=== PATIENT | male | born 1960 ===

== ENCOUNTER 2020-12-13 21:57 | Inpatient (IN) ==
[2020-12-14] MEDS ORDERED: Naloxone 0.4 MG/ML INJ IVP PRN (00:26)
[2020-12-14 01:02] LABS: Basophils % 0.2 %; Eosinophils # 0.3 K/mcL (0.0-0.6); Eosinophils % 2.6 %; Hematocrit 35.5 % (37.5-50.1); Hemoglobin 11.1 g/dL (12.9-16.9); Immature Granulocytes % 1.9 % (0-4); Lymphocytes # 1.2 K/mcL (0.6-4.6); Lymphocytes % 9.2 %; Mean Corpuscular HGB Conc 31.3 g/dL (31.6-35.5); Mean Corpuscular Volume 99.2 fL (83.0-100.0); Monocytes # 0.9 K/mcL (0.0-1.3); Monocytes % 7.2 %; Neutrophils # 10.1 K/mcL (1.6-8.9); Nucleated Red Blood Cells 0.2 /100 WBC (0); Platelet Count 145 K/mcL (140-400); Red Blood Count 3.58 M/mcL (4.19-5.50); Red Cell Distribution Width 14.8 % (11.5-14.5); Segmented Neutrophils % 78.9 %; White Blood Count 12.9 K/mcL (4.3-11.1)
[2020-12-14 01:12] LABS: INR 1.8; Prothrombin Time 20.7 Seconds (9.4-12.1)
[2020-12-14 01:27] LABS: Alanine Aminotransferase 53 Units/L (7-52); Albumin 3.2 g/dL (3.5-5.7); Albumin/Globulin Ratio 1.1 (1.1-2.2); Alkaline Phosphatase 59 Units/L (34-104); Aspartate Amino Transferase 25 Units/L (13-39); BUN/Creatinine Ratio 16 (6-26); Bilirubin,Total 0.6 mg/dL (0.3-1.0); Blood Urea Nitrogen 15 mg/dL (8-23); C-Reactive Protein > 300 mg/L (Less than 10); Calcium 8.8 mg/dL (8.6-10.3); Carbon Dioxide 32 mEq/L (23-29); Chloride 88 mEq/L (98-107); Glucose 145 mg/dL (70-105); Magnesium 2.2 mg/dL (1.6-2.6); Osmolality,Calculated 279 (280-300); Potassium 3.3 mEq/L (3.5-5.1); Sodium 133 mEq/L (136-145); Total Protein 6.2 g/dL (6.4-8.9); eGFR For African Americans > 60 (> 60); eGFR For Non-African Americans > 60 (> 60)
[2020-12-14] MEDS: Ondansetron 4 MG/2 ML VIAL IVP PRN (02:31)
[2020-12-14] MEDS ORDERED: Ipratropium/Albuterol Neb 3 ML IH PRN (03:13)
[2020-12-14 03:15] LABS: Bilirubin,Urine Negative (Negative); Blood,Urine Small (Negative); Budding Yeast,Urine Many per hpf (None Seen); Clarity,Urine Turbid (Clear); Color,Urine Yellow (Yellow); Glucose,Urine (UA) Normal (Normal); Ketones,Urine 40 mg/dL (Negative); Leukocyte Esterase,Urine Negative (Negative); Nitrite,Urine Negative (Negative); Protein,Urine 70 mg/dL (Neg-Trace); RBC,Urine 30-50 per hpf (0-3); Specific Gravity,Urine > 1.030 (1.010-1.025); Squamous Epithelial Cell,Urine Few per hpf (None-Few); Urobilinogen,Urine Normal (Normal); WBC,Urine 15-30 per hpf (0-3)
[2020-12-14] MEDS: Acetaminophen 325 MG TABLET PO PRN (03:41)
[2020-12-14 03:52] LABS: Adenovirus Not Detected (Not Detect); Coronavirus 229E Not Detected (Not Detect); Coronavirus HKU1 Not Detected (Not Detect); Coronavirus NL63 Not Detected (Not Detect); Coronavirus OC43 Not Detected (Not Detect)
[2020-12-14 03:53] LABS: Bordetella Pertussis Not Detected (Not Detect); Chlamydophila pneumoniae Not Detected (Not Detect); Human Metapneumovirus Not Detected (Not Detect); Human Rhinovirus/Enterovirus Not Detected (Not Detect); Influenza A Subtype 2009 H1 Not Detected (Not Detect); Influenza B Not Detected (Not Detect); Mycoplasma pneumoniae Not Detected (Not Detect); Parainfluenza Virus 1 Not Detected (Not Detect); Parainfluenza Virus 2 Not Detected (Not Detect); Parainfluenza Virus 3 Not Detected (Not Detect); Parainfluenza Virus 4 Not Detected (Not Detect); Respiratory Syncytial Virus Not Detected (Not Detect); SARS-CoV-2 Not Detected (Not Detect)
[2020-12-14] MEDS ORDERED: *HR* Metoprolol 5 MG/5 ML VIAL IVP ONE (06:52)
[2020-12-14] MEDS: Trolamine Salicylate/Aloe Vera 85 APPL/85 GM TUBE TP PRN ×3 (07:01→23:18)
[2020-12-14] MEDS: Budesonide/Formoterol 160/4.5 1 PUFF INH IH SCH ×2 (07:29→20:08)
[2020-12-14] MEDS: Apixaban 5 MG TABLET PO SCH ×2 (08:42→21:59)
[2020-12-14] MEDS: Cefepime HCl 2,000 MG in 0.9 % Sodium Chloride Mini Bag 100 ML IVPB SCH ×3 (08:43→23:18)
[2020-12-14] MEDS: Menthol 1 EACH LOZENGE PO PRN (09:08)
[2020-12-14] MEDS: Vancomycin 1,500 MG/265 ML IV.SOLN IVPB SCH ×2 (10:24→21:59)
[2020-12-14] MEDS: MethylPREDNISolone 40 MG/ML VIAL IVP SCH (16:06)
[2020-12-15 00:09] LABS: ABG Base Excess 4 mEq/L (-2 to 3); ABG HCO3 32 mEq/L (21-27); ABG Oxygen Saturation 87 % (95-98); ABG PCO2 60 mmHg (35-45); ABG PH 7.33 pH Units (7.32-7.45); ABG PO2 58 mmHg (85-104); ABG TCO2 33 mEq/L (20-26)
[2020-12-15 02:03] LABS: Basophils % 0.3 %; Eosinophils % 0.3 %; Hematocrit 33.1 % (37.5-50.1); Hemoglobin 10.7 g/dL (12.9-16.9); Immature Granulocytes % 2.3 % (0-4); Lymphocytes # 0.5 K/mcL (0.6-4.6); Lymphocytes % 3.8 %; Mean Corpuscular HGB Conc 32.3 g/dL (31.6-35.5); Mean Corpuscular Hemoglobin 31.6 pg (28.0-33.3); Mean Corpuscular Volume 97.6 fL (83.0-100.0); Mean Platelet Volume 10.6 fL (9.4-12.4); Monocytes # 0.5 K/mcL (0.0-1.3); Neutrophils # 10.5 K/mcL (1.6-8.9); Platelet Count 148 K/mcL (140-400); Red Blood Count 3.39 M/mcL (4.19-5.50); Red Cell Distribution Width 14.3 % (11.5-14.5); Segmented Neutrophils % 89.3 %; White Blood Count 11.7 K/mcL (4.3-11.1)
[2020-12-15 02:20] LABS: BUN/Creatinine Ratio 17 (6-26); Blood Urea Nitrogen 18 mg/dL (8-23); Calcium 8.5 mg/dL (8.6-10.3); Carbon Dioxide 28 mEq/L (23-29); Chloride 93 mEq/L (98-107); Glucose 192 mg/dL (70-105); Osmolality,Calculated 283 (280-300); Sodium 133 mEq/L (136-145); eGFR For African Americans > 60 (> 60); eGFR For Non-African Americans > 60 (> 60)
[2020-12-15] MEDS: MethylPREDNISolone 40 MG/ML VIAL IVP SCH ×2 (06:01→16:57)
[2020-12-15] MEDS: Trolamine Salicylate/Aloe Vera 85 APPL/85 GM TUBE TP PRN ×2 (07:25→16:57)
[2020-12-15] MEDS: Apixaban 5 MG TABLET PO SCH ×2 (07:25→21:53)
[2020-12-15] MEDS: Cefepime HCl 2,000 MG in 0.9 % Sodium Chloride Mini Bag 100 ML IVPB SCH ×2 (07:25→16:56)
[2020-12-15] MEDS: Menthol 1 EACH LOZENGE PO PRN ×2 (07:31→22:01)
[2020-12-15] MEDS ORDERED: Furosemide 40 MG/4 ML VIAL IVP ONE (07:43)
[2020-12-15] MEDS: Fluticasone Propionate Nasal 50 MCG/SPRAY BOTTLE NS SCH (09:01)
[2020-12-15] MEDS: Ipratropium/Albuterol Neb 3 ML IH SCH ×3 (09:59→22:01)
[2020-12-15] MEDS: Budesonide/Formoterol 160/4.5 1 PUFF INH IH SCH ×2 (09:59→22:01)
[2020-12-15] MEDS: Doxycycline 100 MG CAPSULE PO SCH (16:57)
[2020-12-15] MEDS: Acetaminophen 325 MG TABLET PO PRN (21:52)
[2020-12-16] MEDS: Trolamine Salicylate/Aloe Vera 85 APPL/85 GM TUBE TP PRN ×2 (00:01→08:55)
[2020-12-16] MEDS: Cefepime HCl 2,000 MG in 0.9 % Sodium Chloride Mini Bag 100 ML IVPB SCH ×4 (00:01→23:38)
[2020-12-16] MEDS: Menthol 1 EACH LOZENGE PO PRN ×2 (00:44→08:59)
[2020-12-16 02:16] LABS: Basophils % 0.2 %; Hematocrit 30.5 % (37.5-50.1); Hemoglobin 9.8 g/dL (12.9-16.9); Immature Granulocytes % 4.2 % (0-4); Lymphocytes # 0.6 K/mcL (0.6-4.6); Lymphocytes % 4.4 %; Mean Corpuscular HGB Conc 32.1 g/dL (31.6-35.5); Mean Corpuscular Hemoglobin 31.3 pg (28.0-33.3); Mean Corpuscular Volume 97.4 fL (83.0-100.0); Mean Platelet Volume 10.3 fL (9.4-12.4); Monocytes # 0.8 K/mcL (0.0-1.3); Monocytes % 6.6 %; Neutrophils # 10.7 K/mcL (1.6-8.9); Nucleated Red Blood Cells 0.2 /100 WBC (0); Platelet Count 177 K/mcL (140-400); Red Blood Count 3.13 M/mcL (4.19-5.50); Red Cell Distribution Width 14.3 % (11.5-14.5); Segmented Neutrophils % 84.6 %; White Blood Count 12.7 K/mcL (4.3-11.1)
[2020-12-16 02:37] LABS: BUN/Creatinine Ratio 22 (6-26); Blood Urea Nitrogen 27 mg/dL (8-23); Carbon Dioxide 29 mEq/L (23-29); Chloride 93 mEq/L (98-107); Glucose 280 mg/dL (70-105); Osmolality,Calculated 289 (280-300); Potassium 4.5 mEq/L (3.5-5.1); Sodium 132 mEq/L (136-145); eGFR For African Americans > 60 (> 60); eGFR For Non-African Americans 59 (> 60)
[2020-12-16] MEDS: Ipratropium/Albuterol Neb 3 ML IH SCH ×4 (04:00→21:29)
[2020-12-16] MEDS: Doxycycline 100 MG CAPSULE PO SCH ×2 (06:33→16:15)
[2020-12-16] MEDS: MethylPREDNISolone 40 MG/ML VIAL IVP SCH ×2 (06:33→16:14)
[2020-12-16] MEDS: Fluticasone Propionate Nasal 50 MCG/SPRAY BOTTLE NS SCH (08:53)
[2020-12-16] MEDS: Apixaban 5 MG TABLET PO SCH ×2 (08:53→20:28)
[2020-12-16] MEDS: Budesonide/Formoterol 160/4.5 1 PUFF INH IH SCH ×2 (09:48→21:29)
[2020-12-16] MEDS: Acetaminophen 325 MG TABLET PO PRN (10:13)
[2020-12-17] MEDS: Acetaminophen 325 MG TABLET PO PRN (02:45)
[2020-12-17] MEDS: Ipratropium/Albuterol Neb 3 ML IH SCH ×4 (03:53→22:32)
[2020-12-17 04:09] LABS: Basophils % 0.3 %; Hematocrit 30.1 % (37.5-50.1); Hemoglobin 9.9 g/dL (12.9-16.9); Immature Granulocytes % 6.6 % (0-4); Lymphocytes # 0.6 K/mcL (0.6-4.6); Lymphocytes % 5.4 %; Mean Corpuscular HGB Conc 32.9 g/dL (31.6-35.5); Mean Corpuscular Volume 97.4 fL (83.0-100.0); Monocytes # 0.8 K/mcL (0.0-1.3); Neutrophils # 9.4 K/mcL (1.6-8.9); Nucleated Red Blood Cells 0.2 /100 WBC (0); Platelet Count 219 K/mcL (140-400); Red Blood Count 3.09 M/mcL (4.19-5.50); Red Cell Distribution Width 14.5 % (11.5-14.5); Segmented Neutrophils % 80.7 %; White Blood Count 11.7 K/mcL (4.3-11.1)
[2020-12-17 04:16] LABS: BUN/Creatinine Ratio 29 (6-26); Blood Urea Nitrogen 36 mg/dL (8-23); Calcium 9.2 mg/dL (8.6-10.3); Carbon Dioxide 30 mEq/L (23-29); Chloride 95 mEq/L (98-107); Glucose 321 mg/dL (70-105); Osmolality,Calculated 301 (280-300); Potassium 4.4 mEq/L (3.5-5.1); Sodium 135 mEq/L (136-145); eGFR For African Americans > 60 (> 60); eGFR For Non-African Americans 59 (> 60)
[2020-12-17 04:42] LABS: Platelet Estimate Normal (Normal); Smudge Cells Present (Not Present); Toxic Granulation Present (Not Present)
[2020-12-17] MEDS: MethylPREDNISolone 40 MG/ML VIAL IVP SCH ×2 (05:00→16:16)
[2020-12-17] MEDS: Doxycycline 100 MG CAPSULE PO SCH ×2 (05:01→16:14)
[2020-12-17] MEDS: Apixaban 5 MG TABLET PO SCH ×2 (08:16→21:00)
[2020-12-17] MEDS: Trolamine Salicylate/Aloe Vera 85 APPL/85 GM TUBE TP PRN (08:16)
[2020-12-17] MEDS: Cefepime HCl 2,000 MG in 0.9 % Sodium Chloride Mini Bag 100 ML IVPB SCH ×3 (08:17→23:39)
[2020-12-17] MEDS: Fluticasone Propionate Nasal 50 MCG/SPRAY BOTTLE NS SCH (08:18)
[2020-12-17] MEDS: Menthol 1 EACH LOZENGE PO PRN ×3 (08:20→23:50)
[2020-12-17] MEDS ORDERED: Isovue-370 500 ML BOTTLE IVP ONE (09:12)
[2020-12-17] MEDS: Budesonide/Formoterol 160/4.5 1 PUFF INH IH SCH ×2 (11:10→22:32)
[2020-12-17] MEDS ORDERED: D5% in Water 1,000 ML IVC PRN (13:42)
[2020-12-17] MEDS ORDERED: *HR* Dextrose 50 % in Water (Vial) 50 ML VIAL IVP PRN (13:42)
[2020-12-17] MEDS ORDERED: Dextrose Gel 15 GM/37.5 ML TUBE PO PRN ×2 (13:42)
[2020-12-17] MEDS: Insulin LISPRO 300 UNITS/3 ML VIAL SUBQ SCH (16:14)
[2020-12-17] MEDS: MetroNIDAZOLE 500 MG/100 ML 500 MG/100 ML BAG IVPB SCH ×2 (16:15→23:40)
[2020-12-17] MEDS: Insulin DETEMIR 100 UNIT/ML X5UNITS SUBQ SCH (21:01)
[2020-12-18] MEDS: Acetaminophen 325 MG TABLET PO PRN ×2 (01:36→12:10)
[2020-12-18] MEDS: Ipratropium/Albuterol Neb 3 ML IH SCH ×4 (03:55→22:43)
[2020-12-18 04:22] LABS: Basophils % 0.2 %; Eosinophils % 0.1 %; Hemoglobin 9.8 g/dL (12.9-16.9); Immature Granulocytes % 6.7 % (0-4); Lymphocytes # 0.8 K/mcL (0.6-4.6); Lymphocytes % 7.2 %; Mean Corpuscular HGB Conc 32.7 g/dL (31.6-35.5); Mean Corpuscular Hemoglobin 32.1 pg (28.0-33.3); Mean Corpuscular Volume 98.4 fL (83.0-100.0); Mean Platelet Volume 9.8 fL (9.4-12.4); Monocytes # 0.6 K/mcL (0.0-1.3); Monocytes % 5.5 %; Neutrophils # 8.6 K/mcL (1.6-8.9); Nucleated Red Blood Cells 0.3 /100 WBC (0); Platelet Count 215 K/mcL (140-400); Red Blood Count 3.05 M/mcL (4.19-5.50); Red Cell Distribution Width 14.6 % (11.5-14.5); Segmented Neutrophils % 80.3 %; White Blood Count 10.7 K/mcL (4.3-11.1)
[2020-12-18 04:42] LABS: BUN/Creatinine Ratio 33 (6-26); Blood Urea Nitrogen 40 mg/dL (8-23); Calcium 9.3 mg/dL (8.6-10.3); Carbon Dioxide 29 mEq/L (23-29); Chloride 98 mEq/L (98-107); Glucose 320 mg/dL (70-105); Osmolality,Calculated 304 (280-300); Potassium 4.5 mEq/L (3.5-5.1); Sodium 136 mEq/L (136-145); eGFR For African Americans > 60 (> 60); eGFR For Non-African Americans > 60 (> 60)
[2020-12-18 04:53] LABS: Platelet Estimate Normal (Normal)
[2020-12-18 05:08] LABS: Estimated Average Glucose 209 mg/dl; Hemoglobin A1C 8.9 %
[2020-12-18] MEDS: MethylPREDNISolone 40 MG/ML VIAL IVP SCH ×2 (06:31→17:59)
[2020-12-18] MEDS: Doxycycline 100 MG CAPSULE PO SCH ×2 (06:31→18:08)
[2020-12-18] MEDS: Apixaban 5 MG TABLET PO SCH ×2 (08:58→20:03)
[2020-12-18] MEDS: Fluticasone Propionate Nasal 50 MCG/SPRAY BOTTLE NS SCH (08:58)
[2020-12-18] MEDS: Insulin LISPRO 300 UNITS/3 ML VIAL SUBQ SCH ×3 (08:58→17:59)
[2020-12-18] MEDS: Cefepime HCl 2,000 MG in 0.9 % Sodium Chloride Mini Bag 100 ML IVPB SCH ×3 (08:59→23:51)
[2020-12-18] MEDS: MetroNIDAZOLE 500 MG/100 ML 500 MG/100 ML BAG IVPB SCH ×3 (08:59→23:51)
[2020-12-18] MEDS: Budesonide/Formoterol 160/4.5 1 PUFF INH IH SCH ×2 (09:59→22:43)
[2020-12-18] MEDS: Insulin DETEMIR 100 UNIT/ML X5UNITS SUBQ SCH (20:04)
[2020-12-18] MEDS: Trolamine Salicylate/Aloe Vera 85 APPL/85 GM TUBE TP PRN (20:27)
[2020-12-19] MEDS: Ipratropium/Albuterol Neb 3 ML IH SCH ×4 (03:57→23:09)
[2020-12-19] MEDS: Doxycycline 100 MG CAPSULE PO SCH ×2 (04:35→15:28)
[2020-12-19] MEDS: MethylPREDNISolone 40 MG/ML VIAL IVP SCH (04:35)
[2020-12-19] MEDS ORDERED: Furosemide 20 MG/2 ML VIAL IVP ONE (04:40)
[2020-12-19] MEDS: MetroNIDAZOLE 500 MG/100 ML 500 MG/100 ML BAG IVPB SCH ×2 (09:41→15:31)
[2020-12-19] MEDS: Cefepime HCl 2,000 MG in 0.9 % Sodium Chloride Mini Bag 100 ML IVPB SCH ×3 (09:41→23:30)
[2020-12-19] MEDS: Apixaban 5 MG TABLET PO SCH ×2 (09:41→20:04)
[2020-12-19] MEDS: Fluticasone Propionate Nasal 50 MCG/SPRAY BOTTLE NS SCH (09:43)
[2020-12-19] MEDS: Insulin LISPRO 300 UNITS/3 ML VIAL SUBQ SCH ×3 (09:43→17:07)
[2020-12-19] MEDS: Budesonide/Formoterol 160/4.5 1 PUFF INH IH SCH ×2 (11:06→23:09)
[2020-12-19] MEDS ORDERED: Furosemide 40 MG/4 ML VIAL IVP ONE (17:00)
[2020-12-19] MEDS: Insulin DETEMIR 100 UNIT/ML X5UNITS SUBQ SCH (20:05)
[2020-12-20] MEDS: MetroNIDAZOLE 500 MG/100 ML 500 MG/100 ML BAG IVPB SCH ×4 (00:24→23:53)
[2020-12-20] MEDS: Ipratropium/Albuterol Neb 3 ML IH SCH ×4 (04:03→21:49)
[2020-12-20 04:40] LABS: Basophils # 0.1 K/mcL (0.0-0.2); Basophils % 0.5 %; Eosinophils # 0.3 K/mcL (0.0-0.6); Eosinophils % 2.1 %; Hematocrit 33.7 % (37.5-50.1); Hemoglobin 10.5 g/dL (12.9-16.9); Immature Granulocytes % 4.7 % (0-4); Lymphocytes # 1.7 K/mcL (0.6-4.6); Lymphocytes % 13.5 %; Mean Corpuscular HGB Conc 31.2 g/dL (31.6-35.5); Mean Corpuscular Hemoglobin 31.1 pg (28.0-33.3); Mean Corpuscular Volume 99.7 fL (83.0-100.0); Mean Platelet Volume 9.6 fL (9.4-12.4); Monocytes # 0.5 K/mcL (0.0-1.3); Monocytes % 3.7 %; Neutrophils # 9.7 K/mcL (1.6-8.9); Nucleated Red Blood Cells 0.5 /100 WBC (0); Platelet Count 214 K/mcL (140-400); Red Blood Count 3.38 M/mcL (4.19-5.50); Red Cell Distribution Width 15.2 % (11.5-14.5); Segmented Neutrophils % 75.5 %; White Blood Count 12.8 K/mcL (4.3-11.1)
[2020-12-20 04:59] LABS: BUN/Creatinine Ratio 33 (6-26); Blood Urea Nitrogen 40 mg/dL (8-23); Calcium 9.4 mg/dL (8.6-10.3); Carbon Dioxide 31 mEq/L (23-29); Chloride 100 mEq/L (98-107); Glucose 149 mg/dL (70-105); Osmolality,Calculated 301 (280-300); Potassium 3.9 mEq/L (3.5-5.1); Sodium 139 mEq/L (136-145); eGFR For African Americans > 60 (> 60); eGFR For Non-African Americans > 60 (> 60)
[2020-12-20] MEDS: Doxycycline 100 MG CAPSULE PO SCH (05:51)
[2020-12-20] MEDS: Apixaban 5 MG TABLET PO SCH ×2 (07:45→21:10)
[2020-12-20] MEDS: Cefepime HCl 2,000 MG in 0.9 % Sodium Chloride Mini Bag 100 ML IVPB SCH ×3 (07:45→23:53)
[2020-12-20] MEDS: predniSONE 20 MG TABLET PO SCH (07:45)
[2020-12-20] MEDS: Fluticasone Propionate Nasal 50 MCG/SPRAY BOTTLE NS SCH (07:46)
[2020-12-20] MEDS: Insulin LISPRO 300 UNITS/3 ML VIAL SUBQ SCH ×3 (07:51→16:23)
[2020-12-20] MEDS ORDERED: Furosemide 40 MG/4 ML VIAL IVP SCH (09:00)
[2020-12-20] MEDS: Budesonide/Formoterol 160/4.5 1 PUFF INH IH SCH ×2 (09:03→21:49)
[2020-12-20] MEDS: Ondansetron 4 MG/2 ML VIAL IVP PRN (12:21)
[2020-12-20] MEDS: Acetaminophen 325 MG TABLET PO PRN (21:10)
[2020-12-20] MEDS: Insulin DETEMIR 100 UNIT/ML X5UNITS SUBQ SCH (21:11)
[2020-12-21] MEDS: Ipratropium/Albuterol Neb 3 ML IH SCH ×4 (03:49→22:08)
[2020-12-21 06:24] LABS: Basophils % 0.3 %; Eosinophils # 0.2 K/mcL (0.0-0.6); Eosinophils % 1.9 %; Lymphocytes # 1.4 K/mcL (0.6-4.6); Mean Corpuscular HGB Conc 32.4 g/dL (31.6-35.5); Mean Corpuscular Hemoglobin 32.1 pg (28.0-33.3); Mean Corpuscular Volume 99.1 fL (83.0-100.0); Mean Platelet Volume 9.9 fL (9.4-12.4); Monocytes # 0.5 K/mcL (0.0-1.3); Monocytes % 4.1 %; Neutrophils # 9.8 K/mcL (1.6-8.9); Nucleated Red Blood Cells 0.2 /100 WBC (0); Platelet Count 217 K/mcL (140-400); Red Blood Count 3.43 M/mcL (4.19-5.50); Red Cell Distribution Width 14.9 % (11.5-14.5); Segmented Neutrophils % 79.7 %; White Blood Count 12.4 K/mcL (4.3-11.1)
[2020-12-21 06:44] LABS: BUN/Creatinine Ratio 33 (6-26); Blood Urea Nitrogen 44 mg/dL (8-23); Calcium 9.3 mg/dL (8.6-10.3); Carbon Dioxide 31 mEq/L (23-29); Chloride 100 mEq/L (98-107); Glucose 136 mg/dL (70-105); Osmolality,Calculated 299 (280-300); Potassium 3.6 mEq/L (3.5-5.1); Sodium 138 mEq/L (136-145); eGFR For African Americans > 60 (> 60); eGFR For Non-African Americans 54 (> 60)
[2020-12-21] MEDS: Cefepime HCl 2,000 MG in 0.9 % Sodium Chloride Mini Bag 100 ML IVPB SCH ×2 (08:24→16:07)
[2020-12-21] MEDS: predniSONE 20 MG TABLET PO SCH (08:24)
[2020-12-21] MEDS: Apixaban 5 MG TABLET PO SCH ×2 (08:24→20:43)
[2020-12-21] MEDS: Furosemide 40 MG TABLET PO SCH (08:24)
[2020-12-21] MEDS: Insulin LISPRO 300 UNITS/3 ML VIAL SUBQ SCH ×3 (08:26→16:44)
[2020-12-21] MEDS: MetroNIDAZOLE 500 MG/100 ML 500 MG/100 ML BAG IVPB SCH (08:26)
[2020-12-21] MEDS: Fluticasone Propionate Nasal 50 MCG/SPRAY BOTTLE NS SCH (08:27)
[2020-12-21] MEDS: Trolamine Salicylate/Aloe Vera 85 APPL/85 GM TUBE TP PRN (08:27)
[2020-12-21] MEDS: Budesonide/Formoterol 160/4.5 1 PUFF INH IH SCH ×2 (09:26→22:08)
[2020-12-21] MEDS: Insulin DETEMIR 100 UNIT/ML X5UNITS SUBQ SCH (20:43)
[2020-12-22] MEDS: Cefepime HCl 2,000 MG in 0.9 % Sodium Chloride Mini Bag 100 ML IVPB SCH ×3 (00:04→17:33)
[2020-12-22] MEDS: Ipratropium/Albuterol Neb 3 ML IH SCH ×4 (03:47→22:09)
[2020-12-22 04:28] LABS: Basophils % 0.1 %; Eosinophils # 0.1 K/mcL (0.0-0.6); Eosinophils % 0.8 %; Hematocrit 31.2 % (37.5-50.1); Immature Granulocytes % 2.1 % (0-4); Lymphocytes % 9.7 %; Mean Corpuscular HGB Conc 32.1 g/dL (31.6-35.5); Mean Corpuscular Hemoglobin 31.5 pg (28.0-33.3); Mean Corpuscular Volume 98.4 fL (83.0-100.0); Mean Platelet Volume 9.7 fL (9.4-12.4); Monocytes # 0.5 K/mcL (0.0-1.3); Monocytes % 4.3 %; Neutrophils # 8.9 K/mcL (1.6-8.9); Platelet Count 197 K/mcL (140-400); Red Blood Count 3.17 M/mcL (4.19-5.50); Red Cell Distribution Width 14.7 % (11.5-14.5); White Blood Count 10.7 K/mcL (4.3-11.1)
[2020-12-22 04:46] LABS: BUN/Creatinine Ratio 29 (6-26); Blood Urea Nitrogen 36 mg/dL (8-23); Calcium 8.3 mg/dL (8.6-10.3); Carbon Dioxide 28 mEq/L (23-29); Chloride 99 mEq/L (98-107); Glucose 126 mg/dL (70-105); Osmolality,Calculated 302 (280-300); Potassium 3.4 mEq/L (3.5-5.1); Sodium 141 mEq/L (136-145); eGFR For African Americans > 60 (> 60); eGFR For Non-African Americans 58 (> 60)
[2020-12-22] MEDS: Insulin LISPRO 300 UNITS/3 ML VIAL SUBQ SCH ×3 (08:16→17:32)
[2020-12-22] MEDS: Furosemide 40 MG TABLET PO SCH (10:02)
[2020-12-22] MEDS: predniSONE 20 MG TABLET PO SCH (10:02)
[2020-12-22] MEDS: Apixaban 5 MG TABLET PO SCH ×2 (10:03→21:56)
[2020-12-22] MEDS: Fluticasone Propionate Nasal 50 MCG/SPRAY BOTTLE NS SCH (10:05)
[2020-12-22] MEDS: Budesonide/Formoterol 160/4.5 1 PUFF INH IH SCH ×2 (10:55→22:09)
[2020-12-22] MEDS: Acetaminophen 325 MG TABLET PO PRN (12:24)
[2020-12-22] MEDS: Insulin DETEMIR 100 UNIT/ML X5UNITS SUBQ SCH (21:57)
[2020-12-23] MEDS: Cefepime HCl 2,000 MG in 0.9 % Sodium Chloride Mini Bag 100 ML IVPB SCH ×2 (01:17→09:05)
[2020-12-23 03:39] LABS: Basophils % 0.1 %; Eosinophils % 0.2 %; Hematocrit 30.9 % (37.5-50.1); Hemoglobin 10.1 g/dL (12.9-16.9); Immature Granulocytes % 1.7 % (0-4); Lymphocytes # 0.7 K/mcL (0.6-4.6); Lymphocytes % 7.7 %; Mean Corpuscular HGB Conc 32.7 g/dL (31.6-35.5); Mean Corpuscular Hemoglobin 32.4 pg (28.0-33.3); Mean Platelet Volume 10.1 fL (9.4-12.4); Monocytes # 0.5 K/mcL (0.0-1.3); Monocytes % 5.1 %; Neutrophils # 7.9 K/mcL (1.6-8.9); Platelet Count 199 K/mcL (140-400); Red Blood Count 3.12 M/mcL (4.19-5.50); Red Cell Distribution Width 14.6 % (11.5-14.5); Segmented Neutrophils % 85.2 %; White Blood Count 9.2 K/mcL (4.3-11.1)
[2020-12-23] MEDS: Ipratropium/Albuterol Neb 3 ML IH SCH ×2 (03:51→10:16)
[2020-12-23 03:59] LABS: BUN/Creatinine Ratio 26 (6-26); Blood Urea Nitrogen 38 mg/dL (8-23); Calcium 8.6 mg/dL (8.6-10.3); Carbon Dioxide 31 mEq/L (23-29); Chloride 103 mEq/L (98-107); Glucose 153 mg/dL (70-105); Osmolality,Calculated 300 (280-300); Potassium 4.2 mEq/L (3.5-5.1); Sodium 139 mEq/L (136-145); eGFR For African Americans > 60 (> 60); eGFR For Non-African Americans 50 (> 60)
[2020-12-23] MEDS: Trolamine Salicylate/Aloe Vera 85 APPL/85 GM TUBE TP PRN (06:34)
[2020-12-23] MEDS: Insulin LISPRO 300 UNITS/3 ML VIAL SUBQ SCH ×2 (08:21→12:24)
[2020-12-23] MEDS ORDERED: 0.9 % Sodium Chloride Mini Bag 100 ML ONE (08:50)
[2020-12-23] MEDS: Apixaban 5 MG TABLET PO SCH (09:06)
[2020-12-23] MEDS: Fluticasone Propionate Nasal 50 MCG/SPRAY BOTTLE NS SCH (09:06)
[2020-12-23] MEDS: predniSONE 20 MG TABLET PO SCH (09:08)
[2020-12-23] MEDS: Budesonide/Formoterol 160/4.5 1 PUFF INH IH SCH (10:16)
[2020-12-23 11:34] VITALS: BP 124/79
[2020-12-23 12:01] LABS: Adenovirus Not Detected (Not Detect); Bordetella Pertussis Not Detected (Not Detect); Chlamydophila pneumoniae Not Detected (Not Detect); Coronavirus 229E Not Detected (Not Detect); Coronavirus HKU1 Not Detected (Not Detect); Coronavirus NL63 Not Detected (Not Detect); Coronavirus OC43 Not Detected (Not Detect); Human Metapneumovirus Not Detected (Not Detect); Human Rhinovirus/Enterovirus Not Detected (Not Detect); Influenza A Subtype 2009 H1 Not Detected (Not Detect); Influenza B Not Detected (Not Detect); Mycoplasma pneumoniae Not Detected (Not Detect); Parainfluenza Virus 1 Not Detected (Not Detect); Parainfluenza Virus 2 Not Detected (Not Detect); Parainfluenza Virus 3 Not Detected (Not Detect); Parainfluenza Virus 4 Not Detected (Not Detect); Respiratory Syncytial Virus Not Detected (Not Detect); SARS-CoV-2 Not Detected (Not Detect)
[2020-12-23] MEDS: Acetaminophen 325 MG TABLET PO PRN (12:28)
== END 2020-12-23 14:33 | DRG 193 ==
LOC: 2ANU → SUATTDRO 23:52
PROVIDERS: ADMIT Student in an Organized Health Care Education/Training Program; ATTEND Family Medicine

== ENCOUNTER 2021-01-27 05:01 | Inpatient (IN) ==
[2021-01-28] MEDS ORDERED: D5% in Water 1,000 ML IVC PRN (07:39)
[2021-01-28] MEDS ORDERED: *HR* HYDROcodone/Acet 5/325 mg TABLET PO PRN (07:39)
[2021-01-28] MEDS ORDERED: Acetaminophen 325 MG TABLET PO PRN (07:39)
[2021-01-28] MEDS ORDERED: Dextrose Gel 15 GM/37.5 ML TUBE PO PRN ×2 (07:39)
[2021-01-28] MEDS ORDERED: *HR* Dextrose 50 % in Water (Vial) 50 ML VIAL IVP PRN (07:39)
[2021-01-28] MEDS ORDERED: Naloxone 0.4 MG/ML INJ IVP PRN (07:39)
[2021-01-28] MEDS ORDERED: *HR* HYDROmorphone 2 MG/ML SYRINGE IVP PRN (07:46)
[2021-01-28] MEDS: 0.9 % Sodium Chloride 1,000 ML IVC SCH ×6 (08:06→19:05)
[2021-01-28 08:40] LABS: Basophils % 0.2 %; Eosinophils # 0.1 K/mcL (0.0-0.6); Eosinophils % 0.8 %; Hematocrit 30.5 % (37.5-50.1); Hemoglobin 9.2 g/dL (12.9-16.9); Immature Granulocytes % 0.6 % (0-4); Lymphocytes # 0.8 K/mcL (0.6-4.6); Lymphocytes % 5.9 %; Mean Corpuscular HGB Conc 30.2 g/dL (31.6-35.5); Mean Corpuscular Hemoglobin 31.4 pg (28.0-33.3); Mean Corpuscular Volume 104.1 fL (83.0-100.0); Monocytes # 0.7 K/mcL (0.0-1.3); Monocytes % 4.9 %; Neutrophils # 11.7 K/mcL (1.6-8.9); Nucleated Red Blood Cells 0.2 /100 WBC (0); Platelet Count 222 K/mcL (140-400); Red Blood Count 2.93 M/mcL (4.19-5.50); Red Cell Distribution Width 15.1 % (11.5-14.5); Segmented Neutrophils % 87.6 %; White Blood Count 13.3 K/mcL (4.3-11.1)
[2021-01-28] MEDS ORDERED: Apixaban 5 MG TABLET PO SCH (09:00)
[2021-01-28 09:22] LABS: Alanine Aminotransferase 1048 Units/L (7-52); Albumin 2.7 g/dL (3.5-5.7); Albumin/Globulin Ratio 0.9 (1.1-2.2); Alkaline Phosphatase 106 Units/L (34-104); Aspartate Amino Transferase 1758 Units/L (13-39); BUN/Creatinine Ratio 9 (6-26); Bilirubin,Total 0.8 mg/dL (0.3-1.0); Blood Urea Nitrogen 13 mg/dL (8-23); Calcium 7.7 mg/dL (8.6-10.3); Carbon Dioxide 32 mEq/L (23-29); Chloride 99 mEq/L (98-107); Globulin 2.9 g/dL (2.4-3.5); Glucose 90 mg/dL (70-105); Osmolality,Calculated 284 (280-300); Potassium 4.4 mEq/L (3.5-5.1); Sodium 137 mEq/L (136-145); Total Protein 5.6 g/dL (6.4-8.9); eGFR For African Americans > 60 (> 60); eGFR For Non-African Americans 50 (> 60)
[2021-01-28] MEDS: Ipratropium/Albuterol Neb 3 ML IH PRN (11:22)
[2021-01-28] MEDS ORDERED: 0.9 % Sodium Chloride 500 ML IVC ONE (12:22)
[2021-01-28] MEDS: Insulin LISPRO 300 UNITS/3 ML VIAL SUBQ SCH ×2 (12:36→18:18)
[2021-01-28] MEDS ORDERED: 0.9 % Sodium Chloride 1,000 ML IV ONE (12:41)
[2021-01-28] MEDS: Piperacillin/Tazobactam 3.375 GM in 0.9 % Sodium Chloride Mini Bag 100 ML IVPB SCH ×2 (13:20→20:15)
[2021-01-28] MEDS: Norepinephrine 4 MG/254 ML IV.SOLN IVC SCH ×2 (14:15→19:05)
[2021-01-28] MEDS ORDERED: 0.9 % Sodium Chloride 3,000 ML ONE (14:31)
[2021-01-28 15:11] LABS: Bacteria,Urine Few per hpf (None-Few); Bilirubin,Urine Negative (Negative); Blood,Urine Large (Negative); Clarity,Urine Turbid (Clear); Color,Urine Yellow (Yellow); Glucose,Urine (UA) Normal (Normal); Ketones,Urine Negative (Negative); Leukocyte Esterase,Urine Small (Negative); Mucus,Urine Few per lpf (None-Few); Nitrite,Urine Negative (Negative); PH,Urine 5.5 pH Units (5.0-8.0); Protein,Urine 50 mg/dL (Neg-Trace); RBC,Urine TNTC per hpf (0-3); Specific Gravity,Urine > 1.030 (1.010-1.025); Squamous Epithelial Cell,Urine Few per hpf (None-Few); Urobilinogen,Urine Normal (Normal); WBC,Urine 30-50 per hpf (0-3)
[2021-01-28 15:21] LABS: INR 4.2
[2021-01-28 15:23] LABS: Activated Partial Thrombo Time 29.4 Seconds (26.0-36.0)
[2021-01-28 15:27] LABS: Prothrombin Time 46.7 Seconds (9.4-12.1)
[2021-01-28] MEDS: Azithromycin 500 MG in 0.9 % Sodium Chloride 250 ML IVPB SCH (16:10)
[2021-01-28 16:30] LABS: Adenovirus Not Detected (Not Detect); Bordetella Pertussis Not Detected (Not Detect); Chlamydophila pneumoniae Not Detected (Not Detect); Coronavirus 229E Not Detected (Not Detect); Coronavirus HKU1 Not Detected (Not Detect); Coronavirus NL63 Not Detected (Not Detect); Coronavirus OC43 Not Detected (Not Detect); Human Metapneumovirus Not Detected (Not Detect); Human Rhinovirus/Enterovirus Not Detected (Not Detect); Influenza A Subtype 2009 H1 Not Detected (Not Detect); Influenza B Not Detected (Not Detect); Mycoplasma pneumoniae Not Detected (Not Detect); Parainfluenza Virus 1 Not Detected (Not Detect); Parainfluenza Virus 2 Not Detected (Not Detect); Parainfluenza Virus 3 Not Detected (Not Detect); Parainfluenza Virus 4 Not Detected (Not Detect); Respiratory Syncytial Virus Not Detected (Not Detect); SARS-CoV-2 Not Detected (Not Detect)
[2021-01-28] MEDS ORDERED: Acetylcysteine 15,000 MG in D5% in Water 250 ML IVC ONE (17:00)
[2021-01-28 17:24] LABS: Acetaminophen < 10 mcg/mL (10-20); Ethanol < 10 mg/dL (Less than 10); Salicylate < 2.5 mg/dL (15.0-30.0)
[2021-01-28 17:30] LABS: Bacteria,Urine Few per hpf (None-Few); Bilirubin,Urine Negative (Negative); Blood,Urine Large (Negative); Clarity,Urine Turbid (Clear); Color,Urine Yellow (Yellow); Glucose,Urine (UA) Normal (Normal); Hyaline Casts,Urine Few per lpf (None Seen); Ketones,Urine Negative (Negative); Leukocyte Esterase,Urine Small (Negative); Mucus,Urine Few per lpf (None-Few); Nitrite,Urine Negative (Negative); Protein,Urine 50 mg/dL (Neg-Trace); RBC,Urine TNTC per hpf (0-3); Specific Gravity,Urine > 1.030 (1.010-1.025); Squamous Epithelial Cell,Urine Few per hpf (None-Few); Urobilinogen,Urine Normal (Normal); WBC,Urine 15-30 per hpf (0-3)
[2021-01-28 17:51] LABS: Amphetamine Screen,Urine Negative ng/mL (Cutoff=1000); Barbiturate Screen,Urine Negative ng/mL (Cutoff=200); Benzodiazepines Screen,Urine Negative ng/mL (Cutoff=200); Cannabinoid Screen,Urine Negative ng/mL (Cutoff = 50); Cocaine Screen,Urine Negative ng/mL (Cutoff= 300); Opiate Screen,Urine Positive ng/mL (Cutoff=300); Phencyclidine Screen,Urine Negative ng/mL (Cutoff=25)
[2021-01-28] MEDS ORDERED: Acetylcysteine 5,000 MG in D5% in Water 500 ML IVC ONE (18:00)
[2021-01-28] MEDS: *HR* OxyCODONE Immed Rel 5 MG TABLET PO PRN ×2 (20:14→21:50)
[2021-01-28] MEDS: Ondansetron 4 MG/2 ML VIAL IVP PRN (21:53)
[2021-01-28] MEDS ORDERED: Acetylcysteine 10,000 MG in D5% in Water 1,000 ML IVC ONE (22:00)
[2021-01-28] MEDS ORDERED: Phenylephrine 10 MG in 0.9 % Sodium Chloride 250 ML IVC SCH (23:15)
[2021-01-29] MEDS: Insulin LISPRO 300 UNITS/3 ML VIAL SUBQ SCH ×5 (00:06→23:22)
[2021-01-29] MEDS: Phenylephrine 50 MG in 0.9 % Sodium Chloride 250 ML IVC SCH ×4 (01:01→20:01)
[2021-01-29 01:21] LABS: Basophils % 0.2 %; Eosinophils # 0.1 K/mcL (0.0-0.6); Eosinophils % 0.8 %; Hematocrit 25.1 % (37.5-50.1); Hemoglobin 7.8 g/dL (12.9-16.9); Immature Granulocytes % 1.4 % (0-4); Lymphocytes % 6.5 %; Mean Corpuscular HGB Conc 31.1 g/dL (31.6-35.5); Mean Corpuscular Hemoglobin 31.6 pg (28.0-33.3); Mean Corpuscular Volume 101.6 fL (83.0-100.0); Mean Platelet Volume 9.7 fL (9.4-12.4); Monocytes # 0.6 K/mcL (0.0-1.3); Monocytes % 3.5 %; Nucleated Red Blood Cells 0.4 /100 WBC (0); Platelet Count 216 K/mcL (140-400); Red Blood Count 2.47 M/mcL (4.19-5.50); Red Cell Distribution Width 15.1 % (11.5-14.5); Segmented Neutrophils % 87.6 %
[2021-01-29 01:40] LABS: Calcium 6.5 mg/dL (8.6-10.3)
[2021-01-29 04:16] LABS: Basophils # 0.1 K/mcL (0.0-0.2); Basophils % 0.3 %; Eosinophils # 0.2 K/mcL (0.0-0.6); Eosinophils % 1.2 %; Hematocrit 24.2 % (37.5-50.1); Hemoglobin 7.7 g/dL (12.9-16.9); Immature Granulocytes % 1.8 % (0-4); Lymphocytes # 1.4 K/mcL (0.6-4.6); Lymphocytes % 8.2 %; Mean Corpuscular HGB Conc 31.8 g/dL (31.6-35.5); Mean Corpuscular Hemoglobin 32.4 pg (28.0-33.3); Mean Corpuscular Volume 101.7 fL (83.0-100.0); Mean Platelet Volume 9.8 fL (9.4-12.4); Monocytes # 0.8 K/mcL (0.0-1.3); Monocytes % 4.4 %; Neutrophils # 14.4 K/mcL (1.6-8.9); Nucleated Red Blood Cells 0.6 /100 WBC (0); Platelet Count 233 K/mcL (140-400); Red Blood Count 2.38 M/mcL (4.19-5.50); Red Cell Distribution Width 15.2 % (11.5-14.5); Segmented Neutrophils % 84.1 %; White Blood Count 17.1 K/mcL (4.3-11.1)
[2021-01-29] MEDS: Piperacillin/Tazobactam 3.375 GM in 0.9 % Sodium Chloride Mini Bag 100 ML IVPB SCH ×3 (04:16→20:49)
[2021-01-29 04:21] LABS: VBG Ionized Calcium 0.96 mmol/L (1.15-1.35)
[2021-01-29 04:49] LABS: Albumin 2.3 g/dL (3.5-5.7); Bilirubin,Direct 0.8 mg/dL (0.0-0.2); Bilirubin,Indirect 0.4 mg/dL (0.0-1.0); Bilirubin,Total 1.2 mg/dL (0.3-1.0); Calcium 6.5 mg/dL (8.6-10.3); Globulin 2.4 g/dL (2.4-3.5); Magnesium 1.1 mg/dL (1.6-2.6); Phosphorous 2.4 mg/dL (2.7-4.5); Potassium 3.8 mEq/L (3.5-5.1); Total Protein 4.7 g/dL (6.4-8.9)
[2021-01-29] MEDS ORDERED: Calcium Chloride 2,000 MG in 0.9 % Sodium Chloride 100 ML IVPB ONE (05:14)
[2021-01-29] MEDS ORDERED: Perflutren Lipid Microsphere 1.3 ML in 0.9 % Sodium Chloride 8.7 ML IVP PRN (10:53)
[2021-01-29] MEDS ORDERED: Amiodarone Premix 360 MG/200 ML BAG IVC ONE (10:56)
[2021-01-29] MEDS ORDERED: Amiodarone Premix 150 MG/100 ML BAG IVPB ONE (10:56)
[2021-01-29] MEDS ORDERED: Albumin 25% 25gram/100mL 25 GM/100 ML IV.SOLN IVPB ONE (13:17)
[2021-01-29] MEDS: Ondansetron 4 MG/2 ML VIAL IVP PRN ×2 (13:55→22:54)
[2021-01-29] MEDS: Azithromycin 500 MG in 0.9 % Sodium Chloride 250 ML IVPB SCH (14:14)
[2021-01-29] MEDS: Amiodarone Premix 360 MG/200 ML BAG IVC SCH (17:10)
[2021-01-29] MEDS: *HR* OxyCODONE Immed Rel 5 MG TABLET PO PRN (23:50)
[2021-01-30] MEDS: Phenylephrine 50 MG in 0.9 % Sodium Chloride 250 ML IVC SCH ×4 (02:17→20:54)
[2021-01-30] MEDS: Piperacillin/Tazobactam 3.375 GM in 0.9 % Sodium Chloride Mini Bag 100 ML IVPB SCH ×3 (04:22→20:44)
[2021-01-30] MEDS: Amiodarone Premix 360 MG/200 ML BAG IVC SCH ×2 (04:23→16:50)
[2021-01-30 04:48] LABS: VBG Ionized Calcium 1.15 mmol/L (1.15-1.35)
[2021-01-30 05:01] LABS: Basophils # 0.1 K/mcL (0.0-0.2); Basophils % 0.6 %; Eosinophils # 0.6 K/mcL (0.0-0.6); Eosinophils % 4.6 %; Hematocrit 22.3 % (37.5-50.1); Hemoglobin 7.1 g/dL (12.9-16.9); Immature Granulocytes % 2.6 % (0-4); Lymphocytes # 1.2 K/mcL (0.6-4.6); Lymphocytes % 8.8 %; Mean Corpuscular HGB Conc 31.8 g/dL (31.6-35.5); Mean Corpuscular Volume 100.5 fL (83.0-100.0); Mean Platelet Volume 9.7 fL (9.4-12.4); Monocytes # 0.9 K/mcL (0.0-1.3); Monocytes % 6.2 %; Neutrophils # 10.8 K/mcL (1.6-8.9); Nucleated Red Blood Cells 0.5 /100 WBC (0); Platelet Count 216 K/mcL (140-400); Red Blood Count 2.22 M/mcL (4.19-5.50); Red Cell Distribution Width 15.2 % (11.5-14.5); Segmented Neutrophils % 77.2 %; White Blood Count 13.9 K/mcL (4.3-11.1)
[2021-01-30 05:37] LABS: Albumin 2.5 g/dL (3.5-5.7); Albumin/Globulin Ratio 1.1 (1.1-2.2); Bilirubin,Indirect 0.3 mg/dL (0.0-1.0); Bilirubin,Total 1.3 mg/dL (0.3-1.0); Calcium 7.8 mg/dL (8.6-10.3); Globulin 2.2 g/dL (2.4-3.5); Magnesium 1.4 mg/dL (1.6-2.6); Potassium 3.7 mEq/L (3.5-5.1); Total Protein 4.7 g/dL (6.4-8.9)
[2021-01-30] MEDS: Insulin LISPRO 300 UNITS/3 ML VIAL SUBQ SCH ×4 (05:43→23:45)
[2021-01-30] MEDS: Ondansetron 4 MG/2 ML VIAL IVP PRN ×2 (06:56→17:37)
[2021-01-30] MEDS: Norepinephrine 4 MG/254 ML IV.SOLN IVC SCH (14:37)
[2021-01-30] MEDS: Azithromycin 500 MG in 0.9 % Sodium Chloride 250 ML IVPB SCH (15:35)
[2021-01-30 20:08] LABS: INR 2.4
[2021-01-30] MEDS: *HR* OxyCODONE Immed Rel 5 MG TABLET PO PRN (22:21)
[2021-01-30 23:21] LABS: ABG Base Excess -6 mEq/L (-2 to 3); ABG HCO3 22 mEq/L (21-27); ABG Oxygen Saturation 82 % (95-98); ABG PCO2 57 mmHg (35-45); ABG PH 7.19 pH Units (7.32-7.45); ABG PO2 57 mmHg (85-104); ABG TCO2 24 mEq/L (20-26)
[2021-01-30 23:46] LABS: Basophils # 0.1 K/mcL (0.0-0.2); Basophils % 0.6 %; Eosinophils # 0.6 K/mcL (0.0-0.6); Eosinophils % 4.8 %; Hematocrit 22.8 % (37.5-50.1); Hemoglobin 7.1 g/dL (12.9-16.9); Lymphocytes # 1.2 K/mcL (0.6-4.6); Mean Corpuscular HGB Conc 31.1 g/dL (31.6-35.5); Mean Corpuscular Hemoglobin 31.6 pg (28.0-33.3); Mean Corpuscular Volume 101.3 fL (83.0-100.0); Monocytes % 7.7 %; Nucleated Red Blood Cells 0.7 /100 WBC (0); Platelet Count 203 K/mcL (140-400); Red Blood Count 2.25 M/mcL (4.19-5.50); Red Cell Distribution Width 15.6 % (11.5-14.5); Segmented Neutrophils % 72.9 %; White Blood Count 12.4 K/mcL (4.3-11.1)
[2021-01-31] MEDS: *HR* OxyCODONE Immed Rel 5 MG TABLET PO PRN (02:50)
[2021-01-31] MEDS: Amiodarone Premix 360 MG/200 ML BAG IVC SCH ×2 (04:08→18:41)
[2021-01-31] MEDS: Piperacillin/Tazobactam 3.375 GM in 0.9 % Sodium Chloride Mini Bag 100 ML IVPB SCH ×2 (04:09→13:46)
[2021-01-31 04:55] LABS: VBG Ionized Calcium 1.16 mmol/L (1.15-1.35)
[2021-01-31 04:58] LABS: ABG Base Excess -7 mEq/L (-2 to 3); ABG HCO3 22 mEq/L (21-27); ABG Oxygen Saturation 90 % (95-98); ABG PCO2 56 mmHg (35-45); ABG PH 7.19 pH Units (7.32-7.45); ABG PO2 74 mmHg (85-104); ABG TCO2 23 mEq/L (20-26); Blood Gas Modality avaps; Blood Gas Pressure Support 15 cm H2O; Blood Gas VT 550 cc
[2021-01-31 05:01] LABS: Basophils # 0.1 K/mcL (0.0-0.2); Basophils % 0.7 %; Eosinophils # 0.7 K/mcL (0.0-0.6); Eosinophils % 6.7 %; Hematocrit 21.5 % (37.5-50.1); Hemoglobin 6.8 g/dL (12.9-16.9); Immature Granulocytes % 4.5 % (0-4); Lymphocytes # 1.1 K/mcL (0.6-4.6); Mean Corpuscular HGB Conc 31.6 g/dL (31.6-35.5); Mean Corpuscular Hemoglobin 31.6 pg (28.0-33.3); Mean Platelet Volume 9.8 fL (9.4-12.4); Monocytes # 0.8 K/mcL (0.0-1.3); Monocytes % 7.7 %; Neutrophils # 6.9 K/mcL (1.6-8.9); Nucleated Red Blood Cells 0.8 /100 WBC (0); Platelet Count 183 K/mcL (140-400); Red Blood Count 2.15 M/mcL (4.19-5.50); Red Cell Distribution Width 15.6 % (11.5-14.5); Segmented Neutrophils % 69.4 %
[2021-01-31 05:18] LABS: Calcium 7.9 mg/dL (8.6-10.3); Magnesium 1.9 mg/dL (1.6-2.6); Phosphorous 2.6 mg/dL (2.7-4.5); Potassium 3.9 mEq/L (3.5-5.1)
[2021-01-31] MEDS: Insulin LISPRO 300 UNITS/3 ML VIAL SUBQ SCH ×4 (05:26→23:27)
[2021-01-31] MEDS ORDERED: 0.9 % Sodium Chloride 250 ML ONE ×2 (05:43→07:42)
[2021-01-31] MEDS ORDERED: Haloperidol Lactate 5 MG/ML VIAL IM ONE ×2 (09:30→09:42)
[2021-01-31] MEDS ORDERED: Haloperidol Lactate 5 MG/ML VIAL ONE (09:49)
[2021-01-31] MEDS ORDERED: Lidocaine -MPF 1% 5 ML AMPUL INFILT ONE (10:56)
[2021-01-31] MEDS: Dexmedetomidine HCl 400 MCG/100 ML MLS IVC SCH (11:15)
[2021-01-31 11:37] LABS: Basophils # 0.1 K/mcL (0.0-0.2); Basophils % 0.8 %; Eosinophils # 0.9 K/mcL (0.0-0.6); Eosinophils % 8.3 %; Hematocrit 22.4 % (37.5-50.1); Hemoglobin 7.1 g/dL (12.9-16.9); Immature Granulocytes % 4.8 % (0-4); Lymphocytes # 1.4 K/mcL (0.6-4.6); Lymphocytes % 12.4 %; Mean Corpuscular HGB Conc 31.7 g/dL (31.6-35.5); Mean Corpuscular Hemoglobin 31.6 pg (28.0-33.3); Mean Corpuscular Volume 99.6 fL (83.0-100.0); Mean Platelet Volume 9.8 fL (9.4-12.4); Monocytes # 1.1 K/mcL (0.0-1.3); Monocytes % 9.7 %; Neutrophils # 6.9 K/mcL (1.6-8.9); Nucleated Red Blood Cells 0.7 /100 WBC (0); Platelet Count 192 K/mcL (140-400); Red Blood Count 2.25 M/mcL (4.19-5.50); Red Cell Distribution Width 15.8 % (11.5-14.5); White Blood Count 10.9 K/mcL (4.3-11.1)
[2021-01-31 11:49] LABS: Prothrombin Time 23.1 Seconds (9.4-12.1)
[2021-01-31 13:25] LABS: Albumin 2.5 g/dL (3.5-5.7); Bilirubin,Direct 0.8 mg/dL (0.0-0.2); Bilirubin,Indirect 0.4 mg/dL (0.0-1.0); Bilirubin,Total 1.2 mg/dL (0.3-1.0); Globulin 2.6 g/dL (2.4-3.5); Total Protein 5.1 g/dL (6.4-8.9)
[2021-01-31] MEDS ORDERED: Albumin 25% 25gram/100mL 25 GM/100 ML IV.SOLN IVPB ONE (14:33)
[2021-01-31] MEDS: Azithromycin 500 MG in 0.9 % Sodium Chloride 250 ML IVPB SCH (15:00)
[2021-01-31 15:33] LABS: ABG Base Excess -7 mEq/L (-2 to 3); ABG HCO3 21 mEq/L (21-27); ABG Oxygen Saturation 91 % (95-98); ABG PCO2 58 mmHg (35-45); ABG PH 7.17 pH Units (7.32-7.45); ABG PO2 77 mmHg (85-104); ABG TCO2 23 mEq/L (20-26); Blood Gas VT 550 cc
[2021-01-31] MEDS ORDERED: D5 IVC SCH (16:00)
[2021-01-31] MEDS ORDERED: WATER IVC SCH (16:00)
[2021-01-31] MEDS ORDERED: SODIUM BICARBONATE IVC SCH (16:00)
[2021-01-31] MEDS: *HR* Heparin 5,000 UNIT/ML VIAL SQ SCH (17:59)
[2021-01-31] MEDS ORDERED: Piperacillin/Tazobactam 3.375 GM in 0.9 % Sodium Chloride Mini Bag 100 ML IVPB SCH (18:00)
[2021-01-31] MEDS: Norepinephrine 4 MG/254 ML IV.SOLN IVC SCH (19:26)
[2021-01-31 20:27] LABS: ABG Base Excess -5 mEq/L (-2 to 3); ABG HCO3 22 mEq/L (21-27); ABG Oxygen Saturation 93 % (95-98); ABG PCO2 52 mmHg (35-45); ABG PH 7.23 pH Units (7.32-7.45); ABG PO2 82 mmHg (85-104); ABG TCO2 24 mEq/L (20-26)
[2021-01-31 21:05] LABS: Sodium, Urine 93.1 mEq/L
[2021-02-01] MEDS: Dexmedetomidine HCl 400 MCG/100 ML MLS IVC SCH ×5 (01:26→20:59)
[2021-02-01] MEDS: Piperacillin/Tazobactam 3.375 GM in 0.9 % Sodium Chloride Mini Bag 100 ML IVPB SCH ×2 (03:21→14:42)
[2021-02-01 03:23] LABS: Hematocrit 23.1 % (37.5-50.1); Hemoglobin 7.6 g/dL (12.9-16.9); Mean Corpuscular HGB Conc 32.9 g/dL (31.6-35.5); Mean Corpuscular Hemoglobin 31.4 pg (28.0-33.3); Mean Corpuscular Volume 95.5 fL (83.0-100.0); Mean Platelet Volume 9.6 fL (9.4-12.4); Platelet Count 145 K/mcL (140-400); Red Blood Count 2.42 M/mcL (4.19-5.50); Red Cell Distribution Width 15.7 % (11.5-14.5); White Blood Count 10.1 K/mcL (4.3-11.1)
[2021-02-01 03:45] LABS: Calcium 7.9 mg/dL (8.6-10.3); Magnesium 1.9 mg/dL (1.6-2.6); Phosphorous 3.1 mg/dL (2.7-4.5); Potassium 3.8 mEq/L (3.5-5.1)
[2021-02-01 03:46] LABS: Bilirubin,Direct 0.9 mg/dL (0.0-0.2); Bilirubin,Indirect 0.3 mg/dL (0.0-1.0); Bilirubin,Total 1.2 mg/dL (0.3-1.0)
[2021-02-01] MEDS: Ipratropium/Albuterol Neb 3 ML IH PRN (04:01)
[2021-02-01] MEDS: Norepinephrine 4 MG/254 ML IV.SOLN IVC SCH (05:10)
[2021-02-01] MEDS: Insulin LISPRO 300 UNITS/3 ML VIAL SUBQ SCH ×4 (05:10→23:10)
[2021-02-01] MEDS: *HR* Heparin 5,000 UNIT/ML VIAL SQ SCH ×2 (05:11→18:36)
[2021-02-01] MEDS: Amiodarone Premix 360 MG/200 ML BAG IVC SCH (06:27)
[2021-02-01] MEDS ORDERED: Haloperidol Lactate 5 MG/ML VIAL IM ONE (06:51)
[2021-02-01] MEDS ORDERED: *HR* Heparin 10,000 UNIT/10 ML VIAL IV PRN (12:06)
[2021-02-01] MEDS ORDERED: 0.9 % Sodium Chloride 250 ML IVC PRN (12:06)
[2021-02-01] MEDS ORDERED: 0.9 % Sodium Chloride 1,000 ML PRIME SCH (12:15)
[2021-02-01 13:26] LABS: Chol/HDL Ratio 18.8 (0-4.9); Cholesterol 94 mg/dL (< 200); HDL Cholesterol 5 mg/dL (40-59); Triglycerides 402 mg/dL (< 150)
[2021-02-01 13:34] LABS: Hepatitis B Surface Antibody < 3.10 mIU/mL
[2021-02-01 13:45] LABS: Hepatitis B Surface Antigen Nonreactive (Nonreactive)
[2021-02-01] MEDS: Phenylephrine 50 MG in 0.9 % Sodium Chloride 250 ML IVC SCH (23:04)
[2021-02-02] MEDS: Dexmedetomidine HCl 400 MCG/100 ML MLS IVC SCH ×5 (00:25→22:47)
[2021-02-02] MEDS: Piperacillin/Tazobactam 3.375 GM in 0.9 % Sodium Chloride Mini Bag 100 ML IVPB SCH ×2 (01:55→13:30)
[2021-02-02 03:35] LABS: Hematocrit 23.5 % (37.5-50.1); Hemoglobin 8.2 g/dL (12.9-16.9); Lymphocytes # 0.9 K/mcL (0.6-4.6); Mean Corpuscular HGB Conc 34.9 g/dL (31.6-35.5); Mean Corpuscular Hemoglobin 32.2 pg (28.0-33.3); Mean Corpuscular Volume 92.2 fL (83.0-100.0); Mean Platelet Volume 9.9 fL (9.4-12.4); Nucleated Red Blood Cells 1.3 /100 WBC (0); Platelet Count 151 K/mcL (140-400); Red Blood Count 2.55 M/mcL (4.19-5.50); Red Cell Distribution Width 15.2 % (11.5-14.5); White Blood Count 9.2 K/mcL (4.3-11.1)
[2021-02-02 03:52] LABS: Calcium 8.1 mg/dL (8.6-10.3); Potassium 3.6 mEq/L (3.5-5.1)
[2021-02-02 03:54] LABS: Magnesium 1.7 mg/dL (1.6-2.6); Phosphorous 2.3 mg/dL (2.7-4.5)
[2021-02-02 03:55] LABS: Troponin I < 0.03 ng/mL (< 0.04)
[2021-02-02 04:19] LABS: Monocytes # 0.2 K/mcL (0.0-1.3); Neutrophils # 7.9 K/mcL (1.6-8.9); Platelet Estimate Normal (Normal)
[2021-02-02 04:20] LABS: Anisocytosis 1+ (Not Present)
[2021-02-02 04:40] LABS: ABG Base Excess 0 mEq/L (-2 to 3); ABG HCO3 26 mEq/L (21-27); ABG Oxygen Saturation 94 % (95-98); ABG PCO2 49 mmHg (35-45); ABG PH 7.33 pH Units (7.32-7.45); ABG PO2 75 mmHg (85-104); ABG TCO2 27 mEq/L (20-26); Blood Gas VT 480 cc
[2021-02-02] MEDS: Insulin LISPRO 300 UNITS/3 ML VIAL SUBQ SCH ×4 (05:26→23:01)
[2021-02-02] MEDS: *HR* Heparin 5,000 UNIT/ML VIAL SQ SCH ×2 (05:26→18:58)
[2021-02-02] MEDS ORDERED: *HR* Heparin 10,000 UNIT/10 ML VIAL IV PRN (07:29)
[2021-02-02] MEDS ORDERED: 0.9 % Sodium Chloride 250 ML IVC PRN (07:29)
[2021-02-02] MEDS ORDERED: 0.9 % Sodium Chloride 1,000 ML PRIME SCH (07:30)
[2021-02-02] MEDS ORDERED: Albumin 25% 25gram/100mL 25 GM/100 ML IV.SOLN ONE (08:38)
[2021-02-02] MEDS: Albumin 25% 25gram/100mL 25 GM/100 ML IV.SOLN IVPB PRN ×2 (09:00→10:30)
[2021-02-02] MEDS ORDERED: *HR* LORazepam 2 MG/ML VIAL IVP ONE (09:17)
[2021-02-02] MEDS ORDERED: *HR* LORazepam 2 MG/ML VIAL ONE (09:20)
[2021-02-02] MEDS: Norepinephrine 4 MG/254 ML IV.SOLN IVC SCH (19:27)
[2021-02-02] MEDS: Phenylephrine 50 MG in 0.9 % Sodium Chloride 250 ML IVC SCH (21:36)
[2021-02-03] MEDS: Piperacillin/Tazobactam 3.375 GM in 0.9 % Sodium Chloride Mini Bag 100 ML IVPB SCH (01:12)
[2021-02-03 04:00] LABS: Basophils # 0.1 K/mcL (0.0-0.2); Basophils % 0.6 %; Eosinophils # 0.9 K/mcL (0.0-0.6); Eosinophils % 11.5 %; Hematocrit 21.5 % (37.5-50.1); Hemoglobin 7.3 g/dL (12.9-16.9); Immature Granulocytes % 4.2 % (0-4); Lymphocytes # 1.2 K/mcL (0.6-4.6); Lymphocytes % 15.4 %; Mean Corpuscular Hemoglobin 31.3 pg (28.0-33.3); Mean Corpuscular Volume 92.3 fL (83.0-100.0); Monocytes # 0.7 K/mcL (0.0-1.3); Monocytes % 8.6 %; Neutrophils # 4.8 K/mcL (1.6-8.9); Nucleated Red Blood Cells 0.9 /100 WBC (0); Platelet Count 130 K/mcL (140-400); Red Blood Count 2.33 M/mcL (4.19-5.50); Red Cell Distribution Width 15.9 % (11.5-14.5); Segmented Neutrophils % 59.7 %
[2021-02-03] MEDS: Dexmedetomidine HCl 400 MCG/100 ML MLS IVC SCH ×3 (04:07→21:15)
[2021-02-03 04:23] LABS: Albumin/Globulin Ratio 1.3 (1.1-2.2); Bilirubin,Total 1.7 mg/dL (0.3-1.0); Calcium 8.2 mg/dL (8.6-10.3); Globulin 2.4 g/dL (2.4-3.5); Magnesium 1.8 mg/dL (1.6-2.6); Phosphorous 1.6 mg/dL (2.7-4.5); Potassium 3.6 mEq/L (3.5-5.1); Total Protein 5.4 g/dL (6.4-8.9)
[2021-02-03] MEDS: Insulin LISPRO 300 UNITS/3 ML VIAL SUBQ SCH ×3 (05:25→18:03)
[2021-02-03] MEDS: *HR* Heparin 5,000 UNIT/ML VIAL SQ SCH ×2 (05:29→18:03)
[2021-02-03] MEDS ORDERED: *HR* Heparin 10,000 UNIT/10 ML VIAL IV PRN (09:44)
[2021-02-03] MEDS ORDERED: 0.9 % Sodium Chloride 250 ML IVC PRN (09:44)
[2021-02-03] MEDS: Norepinephrine 4 MG/254 ML IV.SOLN IVC SCH (09:47)
[2021-02-03] MEDS ORDERED: Albumin 25% 25gram/100mL 25 GM/100 ML IV.SOLN IVPB ONE (10:41)
[2021-02-04] MEDS: Insulin LISPRO 300 UNITS/3 ML VIAL SUBQ SCH ×5 (00:22→23:22)
[2021-02-04] MEDS: Phenylephrine 50 MG in 0.9 % Sodium Chloride 250 ML IVC SCH (00:22)
[2021-02-04 04:08] LABS: Calcium 8.2 mg/dL (8.6-10.3); Magnesium 1.7 mg/dL (1.6-2.6); Phosphorous 1.8 mg/dL (2.7-4.5); Potassium 3.5 mEq/L (3.5-5.1)
[2021-02-04 04:18] LABS: Mean Corpuscular HGB Conc 33.3 g/dL (31.6-35.5); Mean Corpuscular Hemoglobin 31.1 pg (28.0-33.3); Mean Corpuscular Volume 93.3 fL (83.0-100.0); Mean Platelet Volume 10.4 fL (9.4-12.4); Platelet Count 137 K/mcL (140-400); Red Blood Count 2.25 M/mcL (4.19-5.50); Red Cell Distribution Width 16.4 % (11.5-14.5); White Blood Count 7.6 K/mcL (4.3-11.1)
[2021-02-04] MEDS: *HR* Heparin 5,000 UNIT/ML VIAL SQ SCH ×2 (05:56→18:20)
[2021-02-04] MEDS: Dexmedetomidine HCl 400 MCG/100 ML MLS IVC SCH (06:52)
[2021-02-04] MEDS: *HR* OxyCODONE Immed Rel 5 MG TABLET PO PRN ×2 (08:36→11:54)
[2021-02-04] MEDS ORDERED: Ondansetron 4 MG/2 ML VIAL IVP PRN (14:40)
[2021-02-04] MEDS ORDERED: D5% in Water 1,000 ML IVC PRN (14:40)
[2021-02-04] MEDS ORDERED: *HR* Dextrose 50 % in Water (Vial) 50 ML VIAL IVP PRN (14:40)
[2021-02-04] MEDS ORDERED: Ipratropium/Albuterol Neb 3 ML IH PRN (14:40)
[2021-02-04] MEDS ORDERED: Dextrose Gel 15 GM/37.5 ML TUBE PO PRN ×2 (14:40)
[2021-02-04] MEDS ORDERED: 0.9 % Sodium Chloride 1,000 ML PRIME SCH (14:40)
[2021-02-04] MEDS ORDERED: 0.9 % Sodium Chloride 250 ML IVC PRN (14:40)
[2021-02-04] MEDS ORDERED: Dexmedetomidine HCl 400 MCG/100 ML MLS IVC SCH (14:40)
[2021-02-04] MEDS ORDERED: Albumin 25% 25gram/100mL 25 GM/100 ML IV.SOLN IVPB PRN (14:40)
[2021-02-04] MEDS ORDERED: Naloxone 0.4 MG/ML INJ IVP PRN (14:40)
[2021-02-04] MEDS ORDERED: *HR* Metoprolol 5 MG/5 ML VIAL IVP ONE ×2 (17:34→23:37)
[2021-02-05 03:04] LABS: Hematocrit 22.9 % (37.5-50.1); Hemoglobin 7.4 g/dL (12.9-16.9); Mean Corpuscular HGB Conc 32.3 g/dL (31.6-35.5); Mean Corpuscular Volume 95.8 fL (83.0-100.0); Mean Platelet Volume 10.2 fL (9.4-12.4); Platelet Count 138 K/mcL (140-400); Red Blood Count 2.39 M/mcL (4.19-5.50); Red Cell Distribution Width 16.5 % (11.5-14.5); White Blood Count 8.5 K/mcL (4.3-11.1)
[2021-02-05 03:20] LABS: Calcium 8.4 mg/dL (8.6-10.3); Magnesium 1.9 mg/dL (1.6-2.6); Phosphorous 2.2 mg/dL (2.7-4.5); Potassium 3.5 mEq/L (3.5-5.1)
[2021-02-05] MEDS: Insulin LISPRO 300 UNITS/3 ML VIAL SUBQ SCH ×4 (04:19→23:00)
[2021-02-05] MEDS: *HR* Heparin 5,000 UNIT/ML VIAL SQ SCH ×2 (05:01→18:27)
[2021-02-05] MEDS ORDERED: *HR* Metoprolol 5 MG/5 ML VIAL IVP ONE ×2 (07:46→11:47)
[2021-02-05] MEDS ORDERED: *HR* Heparin 10,000 UNIT/10 ML VIAL IV PRN ×2 (08:45)
[2021-02-05] MEDS ORDERED: 0.9 % Sodium Chloride 250 ML IVC PRN (08:45)
[2021-02-05] MEDS ORDERED: Amiodarone Premix 150 MG/100 ML BAG IVPB ONE ×2 (10:40→10:42)
[2021-02-05] MEDS ORDERED: Amiodarone Premix 360 MG/200 ML BAG IVC ONE ×2 (10:42→10:51)
[2021-02-05] MEDS ORDERED: IBUTILIDE IVP ONE (10:42)
[2021-02-05] MEDS ORDERED: Albuterol 2.5 MG/3 ML NEBULIZER IH PRN (10:46)
[2021-02-05] MEDS ORDERED: predniSONE 20 MG TABLET PO SCH (12:30)
[2021-02-05] MEDS ORDERED: Benzonatate 100 MG CAPSULE PO PRN (16:20)
[2021-02-05] MEDS ORDERED: *HR* Midazolam HCl 5 MG/5 ML VIAL IVP ONE (16:37)
[2021-02-05] MEDS: Amiodarone Premix 360 MG/200 ML BAG IVC SCH (16:39)
[2021-02-05] MEDS ORDERED: Lidocaine Viscous Oral Soln 15 ML SOLUTION ONE (16:52)
[2021-02-05] MEDS ORDERED: Lidocaine -MPF 2% 5 ML VIAL ONE (16:53)
[2021-02-05] MEDS ORDERED: *HR* Midazolam HCl 2 MG/2 ML VIAL IVP ONE (17:03)
[2021-02-05] MEDS ORDERED: Lidocaine Viscous Oral Soln 15 ML SOLUTION MM ONE (17:33)
[2021-02-05] MEDS: MethylPREDNISolone 40 MG/ML VIAL IVP SCH ×2 (18:27→23:00)
[2021-02-05] MEDS: Dexmedetomidine HCl 400 MCG/100 ML MLS IVC SCH ×2 (19:03→23:08)
[2021-02-05 19:05] LABS: ABG Base Excess 2 mEq/L (-2 to 3); ABG HCO3 29 mEq/L (21-27); ABG Oxygen Saturation 84 % (95-98); ABG PCO2 58 mmHg (35-45); ABG PH 7.31 pH Units (7.32-7.45); ABG PO2 54 mmHg (85-104); ABG TCO2 31 mEq/L (20-26)
[2021-02-05] MEDS: Budesonide/Formoterol 160/4.5 1 PUFF INH IH SCH (20:14)
[2021-02-05] MEDS: Prochlorperazine 10 MG/2 ML VIAL IVP PRN (21:38)
[2021-02-06] MEDS: Amiodarone Premix 360 MG/200 ML BAG IVC SCH (02:06)
[2021-02-06 03:15] LABS: Basophils % 0.2 %; Eosinophils % 0.2 %; Hematocrit 22.5 % (37.5-50.1); Hemoglobin 7.1 g/dL (12.9-16.9); Immature Granulocytes % 1.8 % (0-4); Lymphocytes # 0.6 K/mcL (0.6-4.6); Mean Corpuscular HGB Conc 31.6 g/dL (31.6-35.5); Mean Corpuscular Volume 98.3 fL (83.0-100.0); Mean Platelet Volume 10.2 fL (9.4-12.4); Monocytes # 0.2 K/mcL (0.0-1.3); Monocytes % 1.7 %; Nucleated Red Blood Cells 1.2 /100 WBC (0); Platelet Count 104 K/mcL (140-400); Red Blood Count 2.29 M/mcL (4.19-5.50); Red Cell Distribution Width 16.6 % (11.5-14.5); Segmented Neutrophils % 91.1 %; White Blood Count 12.1 K/mcL (4.3-11.1)
[2021-02-06 03:33] LABS: Calcium 8.1 mg/dL (8.6-10.3); Potassium 4.1 mEq/L (3.5-5.1)
[2021-02-06] MEDS: MethylPREDNISolone 40 MG/ML VIAL IVP SCH ×3 (05:01→17:36)
[2021-02-06] MEDS: *HR* Heparin 5,000 UNIT/ML VIAL SQ SCH ×2 (05:02→17:37)
[2021-02-06] MEDS: Insulin LISPRO 300 UNITS/3 ML VIAL SUBQ SCH ×3 (05:51→17:39)
[2021-02-06] MEDS ORDERED: Furosemide 40 MG TABLET PO SCH (09:00)
[2021-02-06] MEDS: Budesonide/Formoterol 160/4.5 1 PUFF INH IH SCH ×2 (10:46→19:42)
[2021-02-06] MEDS: Prochlorperazine 10 MG/2 ML VIAL IVP PRN (11:08)
[2021-02-06] MEDS: Dexmedetomidine HCl 400 MCG/100 ML MLS IVC SCH ×2 (11:10→20:50)
[2021-02-06] MEDS ORDERED: Dextrose Gel 15 GM/37.5 ML TUBE PO PRN ×2 (11:40)
[2021-02-06] MEDS ORDERED: Ipratropium/Albuterol Neb 3 ML IH PRN (11:40)
[2021-02-06] MEDS ORDERED: Benzonatate 100 MG CAPSULE PO PRN (11:40)
[2021-02-06] MEDS ORDERED: Albuterol 2.5 MG/3 ML NEBULIZER IH PRN (11:40)
[2021-02-06] MEDS ORDERED: Naloxone 0.4 MG/ML INJ IVP PRN (11:40)
[2021-02-06] MEDS ORDERED: *HR* Dextrose 50 % in Water (Vial) 50 ML VIAL IVP PRN (11:40)
[2021-02-07] MEDS: MethylPREDNISolone 40 MG/ML VIAL IVP SCH ×2 (00:29→06:35)
[2021-02-07] MEDS: Insulin LISPRO 300 UNITS/3 ML VIAL SUBQ SCH ×5 (01:14→20:50)
[2021-02-07] MEDS: *HR* Heparin 5,000 UNIT/ML VIAL SQ SCH ×2 (06:35→16:51)
[2021-02-07] MEDS: Budesonide/Formoterol 160/4.5 1 PUFF INH IH SCH ×2 (07:51→20:31)
[2021-02-07] MEDS ORDERED: *HR* Heparin 10,000 UNIT/10 ML VIAL IV PRN ×2 (08:09)
[2021-02-07] MEDS ORDERED: 0.9 % Sodium Chloride 250 ML IVC PRN (08:09)
[2021-02-07] MEDS ORDERED: 0.9 % Sodium Chloride 500 ML ONE (08:56)
[2021-02-07] MEDS ORDERED: Furosemide 40 MG TABLET PO SCH (09:00)
[2021-02-07] MEDS: Dexmedetomidine HCl 400 MCG/100 ML MLS IVC SCH (09:17)
[2021-02-07] MEDS ORDERED: *HR* Heparin 5,000 UNIT/ML VIAL ONE (09:39)
[2021-02-07 09:58] LABS: Hematocrit 20.4 % (37.5-50.1); Hemoglobin 6.6 g/dL (12.9-16.9); Mean Corpuscular HGB Conc 32.4 g/dL (31.6-35.5); Mean Corpuscular Hemoglobin 30.7 pg (28.0-33.3); Mean Corpuscular Volume 94.9 fL (83.0-100.0); Mean Platelet Volume 11.3 fL (9.4-12.4); Platelet Count 144 K/mcL (140-400); Red Blood Count 2.15 M/mcL (4.19-5.50); Red Cell Distribution Width 16.3 % (11.5-14.5); White Blood Count 10.2 K/mcL (4.3-11.1)
[2021-02-07 10:19] LABS: Calcium 8.2 mg/dL (8.6-10.3); Potassium 4.1 mEq/L (3.5-5.1)
[2021-02-07] MEDS ORDERED: Artificial Tears SOLN 15 ML BOTTLE BOTH EYES PRN (10:35)
[2021-02-07] MEDS ORDERED: Sennosides/Docusate Sodium TABLET PO PRN (14:04)
[2021-02-07] MEDS: Acetaminophen 325 MG TABLET PO PRN (17:07)
[2021-02-07] MEDS ORDERED: *HR* Metoprolol 5 MG/5 ML VIAL IVP ONE ×2 (20:34→21:06)
[2021-02-07] MEDS: Ondansetron 4 MG/2 ML VIAL IVP PRN (20:49)
[2021-02-07] MEDS: Prochlorperazine 10 MG/2 ML VIAL IVP PRN (22:56)
[2021-02-08 05:00] LABS: Hematocrit 24.2 % (37.5-50.1); Mean Corpuscular HGB Conc 33.1 g/dL (31.6-35.5); Mean Corpuscular Hemoglobin 30.7 pg (28.0-33.3); Mean Corpuscular Volume 92.7 fL (83.0-100.0); Mean Platelet Volume 10.3 fL (9.4-12.4); Platelet Count 163 K/mcL (140-400); Red Blood Count 2.61 M/mcL (4.19-5.50); Red Cell Distribution Width 17.5 % (11.5-14.5)
[2021-02-08 05:02] LABS: White Blood Count 15.9 K/mcL (4.3-11.1)
[2021-02-08 05:15] LABS: Calcium 8.1 mg/dL (8.6-10.3); Magnesium 1.9 mg/dL (1.6-2.6); Phosphorous 2.3 mg/dL (2.7-4.5); Potassium 3.8 mEq/L (3.5-5.1)
[2021-02-08] MEDS: *HR* Heparin 5,000 UNIT/ML VIAL SQ SCH ×3 (05:37→16:40)
[2021-02-08] MEDS: Insulin LISPRO 300 UNITS/3 ML VIAL SUBQ SCH ×4 (07:56→21:08)
[2021-02-08] MEDS ORDERED: predniSONE 20 MG TABLET PO SCH (09:00)
[2021-02-08] MEDS: Budesonide/Formoterol 160/4.5 1 PUFF INH IH SCH ×2 (09:29→22:02)
[2021-02-08] MEDS: Pantoprazole 40 MG VIAL IVP SCH ×2 (11:38→16:37)
[2021-02-08] MEDS: Prochlorperazine 10 MG/2 ML VIAL IVP PRN ×2 (11:39→21:09)
[2021-02-08 11:41] LABS: Hematocrit 22.3 % (37.5-50.1); Hemoglobin 7.3 g/dL (12.9-16.9)
[2021-02-08 12:10] LABS: Bilirubin,Urine Negative (Negative); Blood,Urine Large (Negative); Clarity,Urine Ex.Turbid (Clear); Color,Urine Dark-Red (Yellow); Glucose,Urine (UA) Normal (Normal); Ketones,Urine Negative (Negative); Leukocyte Esterase,Urine Small (Negative); Nitrite,Urine Negative (Negative); PH,Urine 6.5 pH Units (5.0-8.0); Protein,Urine >=300 mg/dL (Neg-Trace); Specific Gravity,Urine 1.022 (1.010-1.025); Urobilinogen,Urine Normal (Normal)
[2021-02-08 18:42] LABS: Hematocrit 24.8 % (37.5-50.1); Hemoglobin 8.2 g/dL (12.9-16.9)
[2021-02-09] MEDS: Acetaminophen 325 MG TABLET PO PRN (00:07)
[2021-02-09] MEDS: Prochlorperazine 10 MG/2 ML VIAL IVP PRN (05:23)
[2021-02-09] MEDS: Pantoprazole 40 MG VIAL IVP SCH ×2 (05:27→18:09)
[2021-02-09] MEDS ORDERED: *HR* HYDROcodone/Acet 5/325 mg TABLET PO PRN (06:00)
[2021-02-09 06:35] LABS: Calcium 8.3 mg/dL (8.6-10.3); Magnesium 2.1 mg/dL (1.6-2.6); Phosphorous 2.9 mg/dL (2.7-4.5); Potassium 3.6 mEq/L (3.5-5.1)
[2021-02-09 07:09] LABS: Hematocrit 24.1 % (37.5-50.1); Hemoglobin 7.7 g/dL (12.9-16.9); Mean Corpuscular Hemoglobin 30.8 pg (28.0-33.3); Mean Corpuscular Volume 96.4 fL (83.0-100.0); Mean Platelet Volume 11.3 fL (9.4-12.4); Platelet Count 163 K/mcL (140-400); Red Cell Distribution Width 17.6 % (11.5-14.5); White Blood Count 19.8 K/mcL (4.3-11.1)
[2021-02-09] MEDS: Budesonide/Formoterol 160/4.5 1 PUFF INH IH SCH ×2 (07:48→21:34)
[2021-02-09] MEDS ORDERED: *HR* Heparin 10,000 UNIT/10 ML VIAL IV PRN ×2 (08:23)
[2021-02-09] MEDS ORDERED: 0.9 % Sodium Chloride 250 ML IVC PRN (08:23)
[2021-02-09] MEDS: Insulin LISPRO 300 UNITS/3 ML VIAL SUBQ SCH ×4 (10:10→21:03)
[2021-02-09] MEDS ORDERED: *HR* Propofol 200 MG/20 ML VIAL IVP ONE (13:58)
[2021-02-09] MEDS ORDERED: Lidocaine -MPF 2% 5 ML VIAL ONE (14:01)
[2021-02-09] MEDS ORDERED: *HR* Heparin 5,000 UNIT/ML VIAL IVP ONE (15:00)
[2021-02-09] MEDS ORDERED: *HR* Heparin 5,000 UNIT/ML VIAL IVP PRN ×2 (15:00)
[2021-02-09 15:42] LABS: Hematocrit 25.1 % (37.5-50.1); Hemoglobin 8.2 g/dL (12.9-16.9); Mean Corpuscular HGB Conc 32.7 g/dL (31.6-35.5); Mean Corpuscular Hemoglobin 31.5 pg (28.0-33.3); Mean Corpuscular Volume 96.5 fL (83.0-100.0); Mean Platelet Volume 11.1 fL (9.4-12.4); Platelet Count 153 K/mcL (140-400); Red Cell Distribution Width 17.8 % (11.5-14.5); White Blood Count 24.7 K/mcL (4.3-11.1)
[2021-02-09 15:54] LABS: Heparin anti-factor XA UFH 0.06 IU/mL (0.30-0.70)
[2021-02-09 15:55] LABS: INR 1.1; Prothrombin Time 12.9 Seconds (9.4-12.1)
[2021-02-09] MEDS: Heparin 25,000UNIT/250ML 1/2NS 25,000 UNIT/250 ML IV.SOLN IVC SCH (15:57)
[2021-02-09] MEDS: Sucralfate 1 GM TABLET PO SCH (15:58)
[2021-02-09] MEDS: predniSONE 20 MG TABLET PO SCH (15:58)
[2021-02-09] MEDS: Nystatin POWDER 30 GM BOTTLE TP SCH (21:08)
[2021-02-10] MEDS: Pantoprazole 40 MG VIAL IVP SCH ×2 (05:17→18:40)
[2021-02-10] MEDS: Ondansetron 4 MG/2 ML VIAL IVP PRN ×2 (05:48→16:28)
[2021-02-10 06:29] LABS: Calcium 7.9 mg/dL (8.6-10.3); Potassium 4.4 mEq/L (3.5-5.1)
[2021-02-10 07:00] LABS: Hematocrit 25.4 % (37.5-50.1); Mean Corpuscular HGB Conc 31.5 g/dL (31.6-35.5); Mean Corpuscular Hemoglobin 30.3 pg (28.0-33.3); Mean Corpuscular Volume 96.2 fL (83.0-100.0); Platelet Count 159 K/mcL (140-400); Red Blood Count 2.64 M/mcL (4.19-5.50); Red Cell Distribution Width 17.5 % (11.5-14.5); White Blood Count 17.6 K/mcL (4.3-11.1)
[2021-02-10 07:07] LABS: Magnesium 2.1 mg/dL (1.6-2.6); Phosphorous 3.9 mg/dL (2.7-4.5)
[2021-02-10] MEDS: Heparin 25,000UNIT/250ML 1/2NS 25,000 UNIT/250 ML IV.SOLN IVC SCH (07:53)
[2021-02-10] MEDS: Insulin LISPRO 300 UNITS/3 ML VIAL SUBQ SCH ×4 (07:54→20:08)
[2021-02-10] MEDS: Sucralfate 1 GM TABLET PO SCH ×4 (07:55→18:40)
[2021-02-10] MEDS: predniSONE 20 MG TABLET PO SCH ×3 (07:55→12:25)
[2021-02-10] MEDS: Nystatin POWDER 30 GM BOTTLE TP SCH ×2 (07:56→20:16)
[2021-02-10] MEDS: Budesonide/Formoterol 160/4.5 1 PUFF INH IH SCH ×2 (10:23→19:19)
[2021-02-10] MEDS ORDERED: Heparin 1,000 UNITS/500 mL 500 ML ONE (12:36)
[2021-02-10] MEDS ORDERED: *HR* FentaNYL (PF) 100 MCG/2 ML VIAL IVP ONE (14:35)
[2021-02-10] MEDS ORDERED: *HR* Midazolam HCl 2 MG/2 ML VIAL IVP ONE (14:35)
[2021-02-10] MEDS ORDERED: *HR* Heparin 5,000 UNIT/ML VIAL ONE (14:39)
[2021-02-10] MEDS ORDERED: CeFAZolin 2,000MG/50ML DUPLEX 2,000 MG/50 ML BAG IVPB ONE (15:00)
[2021-02-10] MEDS ORDERED: CeFAZolin 2,000 MG/120 ML BAG IVPB ONE (16:00)
[2021-02-10] MEDS: Apixaban 5 MG TABLET PO SCH (20:16)
[2021-02-11] MEDS: Ondansetron 4 MG/2 ML VIAL IVP PRN ×2 (00:52→08:06)
[2021-02-11] MEDS: Sucralfate 1 GM TABLET PO SCH ×3 (05:41→17:02)
[2021-02-11] MEDS: Pantoprazole 40 MG VIAL IVP SCH ×2 (05:41→18:31)
[2021-02-11 06:09] LABS: Hematocrit 25.7 % (37.5-50.1); Hemoglobin 8.2 g/dL (12.9-16.9); Mean Corpuscular HGB Conc 31.9 g/dL (31.6-35.5); Mean Corpuscular Hemoglobin 30.6 pg (28.0-33.3); Mean Corpuscular Volume 95.9 fL (83.0-100.0); Mean Platelet Volume 11.7 fL (9.4-12.4); Nucleated Red Blood Cells 2.8 /100 WBC (0); Platelet Count 197 K/mcL (140-400); Red Blood Count 2.68 M/mcL (4.19-5.50); Red Cell Distribution Width 17.3 % (11.5-14.5); White Blood Count 15.1 K/mcL (4.3-11.1)
[2021-02-11 06:25] LABS: Calcium 7.9 mg/dL (8.6-10.3); Magnesium 2.2 mg/dL (1.6-2.6); Phosphorous 4.5 mg/dL (2.7-4.5); Potassium 4.4 mEq/L (3.5-5.1)
[2021-02-11 06:34] LABS: Anisocytosis 1+ (Not Present); Hypochromasia Present (Not Present); Lymphocytes # 1.2 K/mcL (0.6-4.6); Monocytes # 0.6 K/mcL (0.0-1.3); Neutrophils # 12.1 K/mcL (1.6-8.9); Platelet Estimate Normal (Normal); Poikilocytosis 1+ (Not Present)
[2021-02-11 06:35] LABS: Toxic Granulation Present (Not Present)
[2021-02-11 06:36] LABS: Basophilic Stippling 1+ (Not Present)
[2021-02-11] MEDS: Insulin LISPRO 300 UNITS/3 ML VIAL SUBQ SCH ×4 (07:50→20:36)
[2021-02-11] MEDS: Budesonide/Formoterol 160/4.5 1 PUFF INH IH SCH ×2 (07:56→19:45)
[2021-02-11] MEDS: predniSONE 20 MG TABLET PO SCH (08:06)
[2021-02-11] MEDS: Apixaban 5 MG TABLET PO SCH ×2 (08:06→20:59)
[2021-02-11] MEDS: Nystatin POWDER 30 GM BOTTLE TP SCH ×2 (08:25→20:59)
[2021-02-11] MEDS ORDERED: 0.9 % Sodium Chloride 250 ML IVC PRN (10:14)
[2021-02-11] MEDS ORDERED: *HR* Heparin 10,000 UNIT/10 ML VIAL IV PRN ×2 (10:14)
[2021-02-11] MEDS ORDERED: Lidocaine Viscous Oral Soln 15 ML SOLUTION MM PRN (12:09)
[2021-02-11] MEDS ORDERED: Albumin 25% 25gram/100mL 25 GM/100 ML IV.SOLN ONE (13:24)
[2021-02-12 04:55] LABS: Hematocrit 24.5 % (37.5-50.1); Hemoglobin 7.7 g/dL (12.9-16.9); Mean Corpuscular HGB Conc 31.4 g/dL (31.6-35.5); Mean Corpuscular Hemoglobin 30.7 pg (28.0-33.3); Mean Corpuscular Volume 97.6 fL (83.0-100.0); Mean Platelet Volume 12.1 fL (9.4-12.4); Platelet Count 204 K/mcL (140-400); Red Blood Count 2.51 M/mcL (4.19-5.50); Red Cell Distribution Width 17.2 % (11.5-14.5); White Blood Count 12.1 K/mcL (4.3-11.1)
[2021-02-12 05:10] LABS: Calcium 7.9 mg/dL (8.6-10.3)
[2021-02-12] MEDS: Pantoprazole 40 MG VIAL IVP SCH ×2 (05:55→18:28)
[2021-02-12] MEDS: Budesonide/Formoterol 160/4.5 1 PUFF INH IH SCH ×2 (07:31→19:46)
[2021-02-12] MEDS: Ondansetron 4 MG/2 ML VIAL IVP PRN (07:47)
[2021-02-12] MEDS: Apixaban 5 MG TABLET PO SCH ×2 (07:48→20:25)
[2021-02-12] MEDS: Sucralfate 1 GM TABLET PO SCH ×4 (07:48→22:00)
[2021-02-12] MEDS: predniSONE 20 MG TABLET PO SCH (07:48)
[2021-02-12] MEDS: Nystatin POWDER 30 GM BOTTLE TP SCH ×2 (07:49→20:25)
[2021-02-12] MEDS: Insulin LISPRO 300 UNITS/3 ML VIAL SUBQ SCH ×4 (07:59→20:21)
[2021-02-12] MEDS ORDERED: Albumin 25% 25gram/100mL 25 GM/100 ML IV.SOLN IVPB PRN (08:13)
[2021-02-12] MEDS ORDERED: *HR* Heparin 10,000 UNIT/10 ML VIAL IV PRN (08:13)
[2021-02-12] MEDS ORDERED: 0.9 % Sodium Chloride 250 ML IVC PRN (08:13)
[2021-02-12] MEDS ORDERED: Albumin 25% 25gram/100mL 25 GM/100 ML IV.SOLN ONE (10:48)
[2021-02-13] MEDS: Pantoprazole 40 MG VIAL IVP SCH ×2 (04:07→17:23)
[2021-02-13 04:26] LABS: Hematocrit 25.6 % (37.5-50.1); Hemoglobin 7.9 g/dL (12.9-16.9); Mean Corpuscular HGB Conc 30.9 g/dL (31.6-35.5); Mean Corpuscular Hemoglobin 30.2 pg (28.0-33.3); Mean Corpuscular Volume 97.7 fL (83.0-100.0); Mean Platelet Volume 12.1 fL (9.4-12.4); Platelet Count 196 K/mcL (140-400); Red Blood Count 2.62 M/mcL (4.19-5.50); Red Cell Distribution Width 17.2 % (11.5-14.5); White Blood Count 14.2 K/mcL (4.3-11.1)
[2021-02-13 04:51] LABS: Calcium 8.3 mg/dL (8.6-10.3); Potassium 4.1 mEq/L (3.5-5.1)
[2021-02-13] MEDS: Sucralfate 1 GM TABLET PO SCH ×4 (07:34→21:52)
[2021-02-13] MEDS: Apixaban 5 MG TABLET PO SCH (07:34)
[2021-02-13] MEDS: predniSONE 20 MG TABLET PO SCH (07:35)
[2021-02-13] MEDS: Nystatin POWDER 30 GM BOTTLE TP SCH ×2 (07:41→21:52)
[2021-02-13] MEDS ORDERED: Lidocaine Viscous Oral Soln 15 ML SOLUTION MM ONE (07:54)
[2021-02-13] MEDS ORDERED: Isovue-370 500 ML BOTTLE IVP ONE ×2 (08:01→09:37)
[2021-02-13] MEDS: Budesonide/Formoterol 160/4.5 1 PUFF INH IH SCH ×2 (08:10→21:10)
[2021-02-13] MEDS: Insulin LISPRO 300 UNITS/3 ML VIAL SUBQ SCH ×4 (12:16→21:51)
[2021-02-13] MEDS: metroNIDAZOLE 500 MG TABLET PO SCH ×2 (12:37→21:51)
[2021-02-13] MEDS ORDERED: 0.9 % Sodium Chloride 1,000 ML IVC ONE (18:45)
[2021-02-13] MEDS ORDERED: 0.9 % Sodium Chloride 1,000 ML IVC SCH (21:45)
[2021-02-13] MEDS: 0.9 % Sodium Chloride 1,000 ML PRIME SCH ×2 (21:50→22:02)
[2021-02-13] MEDS ORDERED: Piperacillin/Tazobactam 3.375 GM in 0.9 % Sodium Chloride Mini Bag 100 ML IVPB SCH (22:08)
[2021-02-13] MEDS ORDERED: Lidocaine -MPF 4% 5 ML AMPUL ONE (22:13)
[2021-02-13] MEDS ORDERED: *HR* Propofol 200 MG/20 ML VIAL IVP ONE (22:14)
[2021-02-13] MEDS ORDERED: Lidocaine -MPF 2% 2 ML VIAL ONE (22:14)
[2021-02-13] MEDS ORDERED: *HR* FentaNYL (PF) 100 MCG/2 ML VIAL ONE (22:14)
[2021-02-13] MEDS ORDERED: *HR* Midazolam HCl 2 MG/2 ML VIAL ONE (22:14)
[2021-02-13 22:55] VITALS: BP 76/55; PULSE 119; TEMP 97.7
[2021-02-13] MEDS ORDERED: Famotidine 20 MG/2 ML VIAL ONE (23:05)
[2021-02-13] MEDS ORDERED: *HR* Vasopressin 20 UNIT/ML VIAL ONE (23:05)
[2021-02-13] MEDS ORDERED: Acetaminophen IV 1,000 MG/100 ML BAG IVPB ONE (23:05)
[2021-02-13] MEDS ORDERED: *HR* Etomidate 40 MG/20 ML VIAL IVP ONE (23:23)
[2021-02-13 23:25] LABS: INR 2.8; Prothrombin Time 31.6 Seconds (9.4-12.1)
[2021-02-13 23:35] LABS: Hematocrit 29.7 % (37.5-50.1); Hemoglobin 9.3 g/dL (12.9-16.9); Mean Corpuscular HGB Conc 31.3 g/dL (31.6-35.5); Mean Corpuscular Hemoglobin 30.3 pg (28.0-33.3); Mean Corpuscular Volume 96.7 fL (83.0-100.0); Mean Platelet Volume 12.9 fL (9.4-12.4); Platelet Count 226 K/mcL (140-400); Red Blood Count 3.07 M/mcL (4.19-5.50); Red Cell Distribution Width 17.8 % (11.5-14.5)
[2021-02-13 23:36] LABS: White Blood Count 24.4 K/mcL (4.3-11.1)
[2021-02-14] MEDS ORDERED: Albumin Human 5% 12.5 GM/250 ML IV.SOLN ONE ×2 (01:04→01:10)
[2021-02-14] MEDS ORDERED: Ondansetron 4 MG/2 ML VIAL ONE (01:48)
[2021-02-14] MEDS ORDERED: *HR* Midazolam HCl 2 MG/2 ML VIAL ONE (02:51)
[2021-02-14] MEDS ORDERED: *HR* Rocuronium Bromide 50 MG/5 ML VIAL ONE (02:51)
[2021-02-14] MEDS ORDERED: *HR* Vasopressin 20 UNIT/ML VIAL ONE (03:28)
[2021-02-14] MEDS ORDERED: Heparin 1,000 UNITS/500 mL 500 ML ONE (03:36)
[2021-02-14 03:44] LABS: Mean Platelet Volume 12.9 fL (9.4-12.4)
[2021-02-14 03:46] LABS: Hematocrit 26.7 % (37.5-50.1); Hemoglobin 8.2 g/dL (12.9-16.9); Mean Corpuscular HGB Conc 30.7 g/dL (31.6-35.5); Mean Corpuscular Hemoglobin 30.4 pg (28.0-33.3); Mean Corpuscular Volume 98.9 fL (83.0-100.0); Platelet Count 157 K/mcL (140-400); Red Cell Distribution Width 16.9 % (11.5-14.5); White Blood Count 27.1 K/mcL (4.3-11.1)
[2021-02-14 04:01] LABS: VBG HCO3 13 mEq/L (21-27); VBG PCO2 65 mmHg (41-51); VBG PO2 139 mmHg (25-50)
[2021-02-14 04:10] LABS: Calcium 6.7 mg/dL (8.6-10.3)
[2021-02-14] MEDS ORDERED: D5% in Water 1,000 ML IVC ONE (04:10)
[2021-02-14 04:33] LABS: INR 4.1
[2021-02-14 04:36] LABS: Prothrombin Time 45.7 Seconds (9.4-12.1)
[2021-02-14 04:37] LABS: Activated Partial Thrombo Time > 360.0 Seconds (26.0-36.0); D-Dimer 4314 ng/mLFEU (0-500)
[2021-02-14] MEDS ORDERED: *HR* EPINEPHrine 1 MG/10 ML SYRINGE ONE (04:42)
[2021-02-14] MEDS ORDERED: 0.9 % Sodium Chloride 250 ML ONE (04:46)
[2021-02-14] MEDS ORDERED: *HR* Phenylephrine 10 MG/ML VIAL ONE (04:46)
[2021-02-14] MEDS: Budesonide/Formoterol 160/4.5 1 PUFF INH IH SCH (07:41)
[2021-02-14 08:44] VITALS: O2SAT 72
[2021-02-14] MEDS ORDERED: predniSONE 20 MG TABLET PO SCH (09:00)
== END 2021-02-14 08:18 | disposition expired | DRG 853 ==
LOC: CDU → ICNU 01-28 13:38 → SUATTDRO 01-28 14:45 → 2NNU 02-06 12:24 → CDU 02-09 09:16 → 3NENU 02-11 17:54 → ICNU 02-13 23:47
PROVIDERS: ADMIT Internal Medicine; ATTEND Internal Medicine
PROC: IRPERMA (2021-02-10 12:00)